=== PATIENT | female | born 1975 | race Caucasian/White ===

== ENCOUNTER 2017-01-09 13:52 | Inpatient (IN) | payer OTHER ==
[~2017-01-09] VITALS: Ht 167.6 cm; Wt 90.7 kg
--- NOTE | 2017-01-09 14:04 | ED PSYCHIATRIC COMPLAINT ---
History of Present Illness General Chief Complaint: Psychiatric Related Complaint Stated Complaint: PSYCH EVAL Source: patient Exam Limitations: no limitations Vital Signs & Intake/Output Vital Signs & Intake/Output Vital Signs Date Time Temp Pulse Resp B/P Pulse O2 O2 Flow FiO2 Ox Delivery Rate 01/09 1402 97.4 85 20 120/90 97 Room Air Allergies Coded Allergies: NSAIDS (Non-Steroidal Anti-Inflamma (Intermediate, HIVES, RASH, STOMACH PAIN 05/21) Reconcile Medications Fluoxetine HCl 20 MG CAPSULE 2 CAP PO DAILY MENTAL HEALTH (Reported) Hydroxyzine Pamoate 50 MG CAPSULE 1 CAP PO Q6H ANXIETY (Reported) Methylprednisolone 4 MG TAB.DS.PK STEROID TAPER (Reported) Olanzapine 10 MG TABLET 1 TAB PO QPM MENTAL HEALTH (Reported) Pregabalin (Lyrica) 150 MG CAPSULE 1 CAP PO TID SPINAL CORD/NERVE PAIN ( Reported) Quetiapine Fumarate 300 MG TABLET 1 TAB PO QHS MENTAL HEALTH (Reported) Quetiapine Fumarate 100 MG TABLET 1 TAB PO TID MENTAL HEALTH (Reported) Tizanidine HCl (Zanaflex) 2 MG CAPSULE 1 CAP PO AD MUSCLE SPASMS (Reported) Tramadol HCl 50 MG TABLET 1 TAB PO PRN PAIN - SPINAL STENOSIS (Reported) Triage Nurses Notes Reviewed? yes Onset: Gradual Duration: week(s): (FEW), worse persistent since (YESTERDAY) Timing: recent history Severity: severe Associated Symptoms: anxiety, impaired concentration, insomnia, suicidal ideation, AUDITORY HALLUCINATIONS : No Patient currently breastfeeds: No HPI: This is a 41-year-old female with history of anxiety, depression, alcohol abuse, past history of benzo and opiate abuse who presents to the ER for chief complaint of suicidal ideation and suicide attempt. She states yesterday over the course of day she took 12 pills of Lyrica instead of one 3 times a day as as directed. She states that she is hearing voices telling her to hurt herself. Patient suffers with chronic back pain issues and chronic alcoholism. Last detox was at [facility] a few months ago. She was living at a sober house for 2 months and doing well until needing to be admitted for vascular procedure at [place]. After the discharge from vascular service she wanted to go back to the sober house but they wouldn't accept her as she was coming from home setting. Patient states now that she is anxious, a motivated and drinking again. She actively wants to hurt herself because she does not feel worthy of her children. Past History Travel History Traveled to [place] past 21 day No Medical History Any Pertinent Medical History? see below for history Neurological: NONE EENT: NONE Cardiovascular: NONE Respiratory: NONE Gastrointestinal: NONE Hepatic: NONE Renal: NEUROGENIC BLADDER SELF CATHETERIZES Musculoskeletal: spinal stenosis, L4, L5,S1,S2 HERNIATED & SLIPPED DISK. Psychiatric: anxiety, depression, GENERALIZED ANXIETY D.O. Endocrine: NONE Blood Disorders: NONE Cancer(s): NONE NURSING PROGRAM MANAGER/Reproductive: NONE Surgical History Surgical History: non-contributory Psychosocial History What is your primary language Chadian Tobacco Use: Current Daily Use Daily Tobacco Use Amount/Type: => 5 Cigarettes daily ETOH Use: alcoholic Illicit Drug Use: benzodiazepines Family History Hx Contributory? No Review of Systems Review of Systems Constitutional: Denies: chills, fever. EENTM: Reports: no symptoms. Respiratory: Denies: cough, short of breath. Cardiovascular: Denies: chest pain. GI: Denies: abdominal pain. Genitourinary: Reports: no symptoms. Musculoskeletal: Reports: no symptoms. Skin: Reports: no symptoms. Neurological/Psychological: Reports: ataxia, confusion, dementia, emotional problems. Hematologic/Endocrine: Denies: bruising, bleeding, polyuria, polydipsia. Immunologic/Allergic: Reports: no symptoms. All Other Systems: Reviewed and Negative Physical Exam Physical Exam General Appearance: well developed/nourished, mild distress Head: atraumatic Eyes: Bilateral: PERRL, EOMI. Ears, Nose, Throat: normal pharynx, normal ENT inspection, hearing grossly normal Neck: normal inspection, supple Respiratory: normal breath sounds Cardiovascular: regular rate/rhythm Gastrointestinal: soft, non-tender Extremities: normal range of motion Neurological/Psychiatric: awake, alert, anxious Appearance/Memory/Insight: disheveled, impaired insight Behavoir/Eye Contact/Speech: avoids eye contact, compulsive, increased rate of speech, FLIGHT OF IDEAS Thoughts/Hallucinations: auditory hallucinations, flight of ideas Skin: intact, normal color, warm/dry SAD PERSONS SAD PERSONS Response Value Depression/Hopelessness? yes 2 Previous Attempts/Psych Care yes 1 Excessive Ethanol/Drug Use? yes 1 Rational Thinking Loss? yes 2 Single//? yes 1 Organized/Serious Attempt yes 2 Social Support? has no support 1 Total 10 SAD PERSONS Done? yes Progress Differential Diagnosis: ANXIETY, DEPRESSIVE, PSYCHOSIS, SCHIZOAFFECTIVE DISORDER , ALCOHOL DEPENDENCE Plan of Care: Orders Procedure Date/time Status Regular Diet 01/10 B Active Admit to inpatient psych 01/09 1649 Active Lab Add-on Test 01/09 1633 Active Pathway - chart 01/09 1632 Active Patient Data - inpatient psych 01/09 1631 Active Admit to inpatient psych 01/09 1631 Active THYROID STIMULATING HORMONE 01/09 1453 Active ETHANOL 01/09 1438 Active COMPREHENSIVE METABOLIC PANEL 01/09 1438 Active CBC WITHOUT DIFFERENTIAL 01/09 1438 Complete Continuous Observation Monitor 01/09 1405 Active URINE DRUGS OF ABUSE 01/09 1405 Complete URINE 01/09 1405 Complete ED CRISIS PSYCH CONSULT 01/09 1405 Active Vital Signs 01/09 UNK Active Straight Cath 01/09 UNK Active Nursing Misc 01/09 UNK Active CIWA 01/09 UNK Active Alternative Nursing Therapy 01/09 UNK Active Activity/Ambulation 01/09 UNK Active Current Medications Sig/Minnie Start time Last Medication Dose Stop Time Status Admin Lorazepam 0.5 MG ONCE 01/14 0000 UNVr (Ativan) 01/14 0001 Lorazepam 0.5 MG Q6H 01/13 0000 UNVr (Ativan) 01/13 1801 Lorazepam 0.5 MG ONCE ONE 01/12 1800 UNVr (Ativan) 01/12 1801 Lorazepam 1 MG Q6H 01/12 0000 UNVr (Ativan) 01/12 1201 Lorazepam 1.5 MG Q12H 01/11 0600 UNVr (Ativan) 01/11 1801 Lorazepam 1 MG Q12H 01/11 0000 UNVr (Ativan) 01/11 1201 Lorazepam 1.5 MG Q6 01/10 0600 UNVr (Ativan) 01/10 1801 Lorazepam 2 MG Q6 01/09 1800 UNVr (Ativan) 01/10 0001 Al Hydroxide/Mg 30 ML Q4-6 PRN PRN 01/09 1645 UNVr Hydroxide (Maalox Plus) Gabapentin 300 MG Q6P PRN 01/09 1645 UNVr (Neurontin) Lorazepam 2 MG Q2P PRN 01/09 1645 UNVr (Ativan) Lorazepam 1 MG Q2P PRN 01/09 1645 UNVr (Ativan) Magnesium Hydroxide 30 ML AT BEDTIME PRN 01/09 1645 UNVr (Milk Of Magnesia) Trazodone HCl 50 MG AT BEDTIME NEED.. 01/09 1645 UNVr (Desyrel) Laboratory Tests 01/09/17 1503: Urine Opiates Screen < 100.00, Methadone Screen 40, Barbiturate Screen < 60, Ur Phencyclidine Scrn < 6.00, Amphetamines Screen < 100, U Benzodiazepines Scrn < 85, Urine Cocaine Screen < 50, Urine Cannabis Screen < 5.00, Urine Test NEGATIVE 01/09/17 1453: Anion Gap 12, Estimated GFR > 60, BUN/Creatinine Ratio 15.0, Glucose 89, Calcium 9.6, Total Bilirubin 0.6, AST 18, ALT 23, Alkaline Phosphatase 97, Total Protein 7.6, Albumin 4.6, Globulin 3.0, Albumin/Globulin Ratio 1.5, TSH Pending, CBC w Diff NO MAN DIFF REQ, RBC 4.61, MCV 80.8 L, MCH 27.4, RDW 17.0 H, MPV 6.9 L, Gran % 61.7, Lymphocytes % 24.6, Monocytes % 10.8 H, Eosinophils % 2.6, Basophils % 0.3, Absolute Granulocytes 3.5, Absolute Lymphocytes 1.4, Absolute Monocytes 0.6, Absolute Eosinophils 0.1, Absolute Basophils 0, PUBS MCHC 33.8, Serum Alcohol < 10.0 SITTER ORDER, CRISIS CONSULT, LABS, UTOX. 4:50 PM PATIENT ADMITTED TO [facility] FOR UNSPECIFIED DEPRESSIVE DISORDER. (CORWIN YAO,JAVIER) Departure Departure Time of Disposition: 1648 Disposition: STILL A PATIENT Condition: Stable Clinical Impression Primary Impression: Depressive disorder Secondary Impressions: Alcohol dependence Departure Forms: Customer Survey General Discharge Information Psych Admission Note Psychiatric Admission: I have seen and evaluated ERNESTO ZAMORA. I have also reviewed all the pertinent lab results and diagnostic results. ERNESTO ZAMORA will be admitted to our inpatient Psychiatric unit for treatment and care.
[2017-01-09 15:11] LABS: ABSOLUTE BASOPHIL COUNT 0 /CUMM (0.0-0.2); ABSOLUTE EOSINOPHIL COUNT 0.1 /CUMM (0.0-0.7); ABSOLUTE GRANULOCYTE CT 3.5 /CUMM (1.4-6.5); ABSOLUTE LYMPH COUNT 1.4 /CUMM (1.2-3.4); ABSOLUTE MONOCYTE COUNT 0.6 /CUMM (0.10-0.60); BASOPHIL % 0.3 % (0.0-2.0); EOSINOPHIL % 2.6 % (0-5); HEMATOCRIT 37.2 % (37-47); MEAN CORPUSCULAR HGB 27.4 PG (27.0-31.0); MEAN CORPUSCULAR HGB CONC 33.8 G/DL (33.0-37.0); MEAN CORPUSCULAR VOLUME 80.8 FL (81.0-99.0); MEAN PLATELET VOLUME 6.9 FL (7.4-10.4); PLATELET COUNT 384 /CUMM (130-400); RED BLOOD CELL CT 4.61 /CUMM (4.20-5.40); WHITE BLOOD CELL COUNT 5.6 /CUMM (4.8-10.8)
[2017-01-09 15:37] LABS: GRANULOCYTE % 61.7 % (42.2-75.2)
[2017-01-09] MEDS ORDERED: METHYLPREDNISOLO4 M2 PO (16:05)
[2017-01-09] MEDS ORDERED: LYRICA150 M1 PO (16:06)
[2017-01-09] MEDS ORDERED: TRAMADOL HCL50 M1 PO (16:07)
[2017-01-09] MEDS ORDERED: QUETIAPINE FUM300 M1 PO (16:08)
[2017-01-09] MEDS ORDERED: ZANAFLEX2 M2 PO (16:08)
[2017-01-09] MEDS ORDERED: FLUOXETINE HCL20 M2 PO (16:09)
[2017-01-09] MEDS ORDERED: QUETIAPINE FUM100 M1 PO (16:09)
[2017-01-09] MEDS ORDERED: HYDROXYZINE PAM50 M1 PO (16:10)
[2017-01-09] MEDS ORDERED: OLANZAPINE10 M1 PO (16:10)
[2017-01-09 17:12] VITALS: BP 140/79
--- NOTE | 2017-01-09 17:18 | ED PSYCH CRISIS CONSULTATION ---
See Addendum Crisis Consult Basic Assessment Date of Consult: 01/09/17 Responsible Person/Accompanied By: social media intern Insurance Authorization: Insurance #1: Insurance name: DIAMOND GONZALEZ Phone number: Policy number: Group number: Authorization number: ED Provider: Patient's ED Provider: JAVIER OLIVIA MD Primary Care Physician: Patient's PCP: PATIENT HAS NO PRIMARY CARE DR PCP's Phone Number: Chief Complaint: Psychiatric Related Complaint Patient's Quote: " I plan to over dose with pills. Present Illness: Pt is 41 yo female with hx of depression and anxiety. Pt was BIB social media intern for taking 12 Lyrica pills last night. Pt presents as confused and disoriented during intake interview ie thoughts were disorganized and tangential. Pt states she is currently suicidal and wants to take pills to kill herself. She says she has current AH telling her to take pills and are putting her down. Pt was unclear about tx history as she is currently anxious. Pt said she has a history of taking seroquel and Lyrica. Pt said she had a hx of going to [facility], [facility], [place] and [facility]. Pt said 2 days ago she had been drink 1/2 pint liter of vodka daily. She would like to be admitted for inpatient treatment. Pt's UTOX was negative for substances. Per collateral with Marvin [phone]: Marvin reported he is very concerned about his sister. She lives with her grandfather or father and has no structure in her day. Brother reports his sister has hx of mental problems. He said he witnesses her coming back from stays and take one months worth of medications in 3 days. Marvin stated he thinks she has struggled with her mother leaving 5 years ago and after her divorce. He said she has 2 kids who live with their father. He feels she needs inpatient treatment at this time. Marvin noted he thinks she needs a structured living situation as she has no motivation and it "feels like talking to a 12 yo." Collaterl with Stacie ( mom ) [phone]: Stacie stated she is worried about her daughter and feels she needs the appropriate help. She reported the pt has had accidental over dose incidents in the past. Patient's Address: [address] [place] [address] Other Phone Number: Who Do You Live With? Brother Family/Informants Interviewed: Marvin Vásquez- brother Stacie- mom Allergies - Coded Allergies: NSAIDS (Non-Steroidal Anti-Inflamma (Intermediate, HIVES, RASH, STOMACH PAIN 05/21) Current Medications - Scheduled Medications Fluoxetine HCl 20 MG CAPSULE 2 CAP PO DAILY MENTAL HEALTH #28 (Reported) Entered as Reported by LUIS MIGUEL HASSAN on 01/09/17 1609 Hydroxyzine Pamoate 50 MG CAPSULE 1 CAP PO Q6H ANXIETY #120 (Reported) Entered as Reported by LUIS MIGUEL HASSAN on 01/09/17 1610 Olanzapine 10 MG TABLET 1 TAB PO QPM MENTAL HEALTH #30 (Reported) Entered as Reported by LUIS MIGUEL HASSAN on 01/09/17 1610 Pregabalin (Lyrica) 150 MG CAPSULE 1 CAP PO TID SPINAL CORD/NERVE PAIN #42 ( Reported) Entered as Reported by LUIS MIGUEL HASSAN on 01/09/17 1606 Quetiapine Fumarate 300 MG TABLET 1 TAB PO QHS MENTAL HEALTH #7 (Reported) Entered as Reported by LUIS MIGUEL HASSAN on 01/09/17 1608 Quetiapine Fumarate 100 MG TABLET 1 TAB PO TID MENTAL HEALTH #70 (Reported) Entered as Reported by LUIS MIGUEL HASSAN on 01/09/17 1609 Tizanidine HCl (Zanaflex) 2 MG CAPSULE 1 CAP PO AD MUSCLE SPASMS #20 ( Reported) Entered as Reported by LUIS MIGUEL HASSAN on 01/09/17 1608 Scheduled PRN Medications Tramadol HCl 50 MG TABLET 1 TAB PO PRN PAIN - SPINAL STENOSIS #56 (Reported) Entered as Reported by LUIS MIGUEL HASSAN on 01/09/17 1607 Miscellaneous Medications Methylprednisolone 4 MG TAB.DS.PK STEROID TAPER (Reported) Entered as Reported by LUIS MIGUEL HASSAN on 01/09/17 1605 Laboratory Results: Laboratory Tests 01/09/17 1503: Urine Opiates Screen < 100.00, Methadone Screen 40, Barbiturate Screen < 60, Ur Phencyclidine Scrn < 6.00, Amphetamines Screen < 100, U Benzodiazepines Scrn < 85, Urine Cocaine Screen < 50, Urine Cannabis Screen < 5.00, Urine Test NEGATIVE 01/09/17 1453: Anion Gap 12, Estimated GFR > 60, BUN/Creatinine Ratio 15.0, Glucose 89, Calcium 9.6, Total Bilirubin 0.6, AST 18, ALT 23, Alkaline Phosphatase 97, Total Protein 7.6, Albumin 4.6, Globulin 3.0, Albumin/Globulin Ratio 1.5, TSH Pending, CBC w Diff NO MAN DIFF REQ, RBC 4.61, MCV 80.8 L, MCH 27.4, RDW 17.0 H, MPV 6.9 L, Gran % 61.7, Lymphocytes % 24.6, Monocytes % 10.8 H, Eosinophils % 2.6, Basophils % 0.3, Absolute Granulocytes 3.5, Absolute Lymphocytes 1.4, Absolute Monocytes 0.6, Absolute Eosinophils 0.1, Absolute Basophils 0, PUBS MCHC 33.8, Serum Alcohol < 10.0 Past History Past Medical History Neurological: NONE EENT: NONE Cardiovascular: NONE Respiratory: NONE Gastrointestinal: NONE Hepatic: NONE Renal: NEUROGENIC BLADDER SELF CATHETERIZES Musculoskeletal: spinal stenosis, L4, L5,S1,S2 HERNIATED & SLIPPED DISK. Psychiatric: anxiety, depression, GENERALIZED ANXIETY D.O. Endocrine: NONE Blood Disorders: NONE Cancer(s): NONE CASEWORKER INTAKE/Reproductive: NONE Psychosocial History Strengths/Capabilities: Pt is motivated for treatment and would like to learn new coping skills. Physical Limitations (Interventions): no Psychiatric Treatment History Psych Treatment Psychiatric Treatment Yes Inpatient Treatment Yes Outpatient Treatment Yes Location of Treatment [facility], and [facility] Reason for Treatment alcohol abuse and depression and anxiety Dates of Treatment Pt reported the past 5 yrs Response to Treatment fair Diagnosis by History: Alcohol, depression and anxiety Substance Use/Abuse History Drug Use/Abuse Substances Used/Abused Yes Substance Used/Abused Alcohol First Use 20's Last Used 2 days ago How much used/taken 1/2 pint vodka How often daily For how long past 3 weeks Route of use oral Substance Abuse Treatment Substance Abuse Treatment Past Substance Abuse TX Yes Inpatient Treatment Yes Outpatient Treatment Yes Location of Treatment [facility] Reason for Treatment Alcohol Dates of Treatment unlcear Response to Treatment fair Comments: Pt reports hx of alcohol abuse and benzo addiction Current Mental Status Mental Status Orientation: Confused Affect: Anxious, Depressed, Hopeless, Manic Speech: Perseveration, WNL Neuro-vegetative: Appetite Decreased, Concentration Poor, Energy Decreased, Loss of Interest, Sleep Disturbance Appearance Appearance- Dress/Hygiene: Pt was dressed in hospital gown, disheveled hair. Behaviors Thought Process: Disorganized, Tangential Thought Content: Auditory Hallucinations Memory: Impaired Insight: Poor SI/HI Risk Assessment Past Suicidal Ideation/Attempts Yes Current Suicidal Ideation/Att Yes Past Homicidal Ideation/Att: No Current Homicidal Ideation/Attempts No Degree of Intent: made attempt Risk Factors: chronic/serious med cond., history of suicide atmpts, substance abuse, limited support Lethality Ratin PTSD Checklist PTSD Done? pt unable to participate ED Management Sitter: Yes Restraints: No DSM5/PS Stressors/Medical Prob Diagnosis' (DSM 5, Stressors, Medical): F32.9 unspecified depression; F41.9 unspecified anxiety Current GAF: 25 Comments: medical: pt reports spinal stenosis Departure Disposition Referrals PATIENT HAS NO PRIMARY CARE DR (PCP/Family)
--- NOTE | 2017-01-09 17:38 | IP CRISIS DIAG ASSESS PSYCH ---
Diagnostic Assessment Basic Assessment Insurance Authorization: Insurance #1: Insurance name: DIAMOND GONZALEZ Phone number: Policy number: [id number] Group number: Authorization number: [id number] Primary Care Physician: Patient's PCP: PATIENT HAS NO PRIMARY CARE DR PCP's Phone Number: Patient's Quote: " I plan to over dose with pills. Present Illness: Pt is 41 yo female with hx of depression and anxiety. Pt was BIB drug abuse social worker for taking 12 Lyrica pills last night. Pt presents as confused and disoriented during intake interview ie thoughts were disorganized and tangential. Pt states she is currently suicidal and wants to take pills to kill herself. She says she has current AH telling her to take pills and are putting her down. Pt was unclear about tx history as she is currently anxious. Pt said she has a history of taking seroquel and Lyrica. Pt said she had a hx of going to [facility], [facility], [place] and [facility]. Pt said 2 days ago she had been drink 1/2 pint liter of vodka daily. She would like to be admitted for inpatient treatment. Pt's UTOX was negative for substances. Per collateral with Marvin [phone]: Marvin reported he is very concerned about his sister. She lives with her grandfather or father and has no structure in her day. Brother reports his sister has hx of mental problems. He said he witnesses her coming back from IP stays and take one months worth of medications in 3 days. Marvin stated he thinks she has struggled with her mother leaving 5 years ago and after her divorce. He said she has 2 kids who live with their father. He feels she needs inpatient treatment at this time. Marvin noted he thinks she needs a structured living situation as she has no motivation and it "feels like talking to a 13 yo." Collaterl with Stacie ( mom ) [phone]: Stacie stated she is worried about her daughter and feels she needs the appropriate help. She reported the pt has had accidental over dose incidents in the past. Patient's Address: [address] [place] [address] Other Phone Number: Who Do You Live With? Brother Feel Safe Where You Live? Yes Feel Safe in Your Relationship Yes Marital Status: Do You Have Children? Yes Ages? 12 and 14 Primary Language? Portuguese Language(s) Spoken At Home: Portuguese Family/Informants Interviewed: Marvin Vásquez- brother Stacie- mom Allergies - Coded Allergies: NSAIDS (Non-Steroidal Anti-Inflamma (Intermediate, HIVES, RASH, STOMACH PAIN 05/21) Current Medications - Scheduled Medications Fluoxetine HCl 20 MG CAPSULE 2 CAP PO DAILY MENTAL HEALTH #28 (Reported) Entered as Reported by LUIS MIGUEL HASSAN on 01/09/17 1609 Hydroxyzine Pamoate 50 MG CAPSULE 1 CAP PO Q6H ANXIETY #120 (Reported) Entered as Reported by LUIS MIGUEL HASSAN on 01/09/17 1610 Olanzapine 10 MG TABLET 1 TAB PO QPM MENTAL HEALTH #30 (Reported) Entered as Reported by LUIS MIGUEL HASSAN on 01/09/17 1610 Pregabalin (Lyrica) 150 MG CAPSULE 1 CAP PO TID SPINAL CORD/NERVE PAIN #42 ( Reported) Entered as Reported by LUIS MIGUEL HASSAN on 01/09/17 1606 Quetiapine Fumarate 300 MG TABLET 1 TAB PO QHS MENTAL HEALTH #7 (Reported) Entered as Reported by LUIS MIGUEL HASSAN on 01/09/17 1608 Quetiapine Fumarate 100 MG TABLET 1 TAB PO TID MENTAL HEALTH #70 (Reported) Entered as Reported by LUIS MIGUEL HASSAN on 01/09/17 1609 Tizanidine HCl (Zanaflex) 2 MG CAPSULE 1 CAP PO AD MUSCLE SPASMS #20 ( Reported) Entered as Reported by LUIS MIGUEL HASSAN on 01/09/17 1608 Scheduled PRN Medications Tramadol HCl 50 MG TABLET 1 TAB PO PRN PAIN - SPINAL STENOSIS #56 (Reported) Entered as Reported by LUIS MIGUEL HASSAN on 01/09/17 1607 Miscellaneous Medications Methylprednisolone 4 MG TAB.DS.PK STEROID TAPER (Reported) Entered as Reported by LUIS MIGUEL HASSAN on 01/09/17 1605 Past History Past Medical History Medical History: pt reports spinal stenosis Past Surgical History Surgical History none Abuse/Trauma History Trauma History/Current Trauma: Pt said a box fell on her at [employer] Victim or Perpretator? victim (NA) History of Trauma/Abuse Treatment? No Abuse/Trauma Treatment: Pt did not report sexual trauma Legal History Current Legal Status: none Psychosocial History Strengths/Capabilities: Pt is motivated for treatment and would like to learn new coping skills. Physical Limitations (Interventions): no Psychiatric Treatment History Psych Treatment Psychiatric Treatment Yes Inpatient Treatment Yes Outpatient Treatment Yes Location of Treatment [facility], [facility], and [facility] Reason for Treatment alcohol abuse and depression and anxiety Dates of Treatment Pt reported the past 5 yrs Response to Treatment fair Diagnosis by History: Alcohol, depression and anxiety Risk Factors: chronic/serious med cond., history of suicide atmpts, substance abuse, limited support Substance Use/Abuse History Drug Use/Abuse minimum 12mo Hx Substances Used/Abused Yes Substance Used/Abused Alcohol First Use 20's Last Used 2 days ago How much used/taken 1/2 pint vodka How often daily For how long past 3 weeks Route of use oral Substance Abuse Treatment Substance Abuse Treatment Past Substance Abuse TX Yes Inpatient Treatment Yes Outpatient Treatment Yes Location of Treatment [facility], [place], and [facility] Reason for Treatment Alcohol Dates of Treatment unlcear Response to Treatment fair Sexual History Sexually Active No # of partners 0 Sexual Orientation Heterosexual Use of Protection No Sexual Concerns: No Education History Highest Level of Education: not sure Preferred Learning Style: visual (visual ) Current Mental Status Mental Status Orientation: Confused Affect: Anxious, Depressed, Hopeless, Manic Speech: Perseveration, WNL Neuro-vegetative: Appetite Decreased, Concentration Poor, Energy Decreased, Loss of Interest, Sleep Disturbance Appearance Appearance- Dress/Hygiene: Pt was dressed in hospital gown, disheveled hair. Behaviors Thought Process: Disorganized, Tangential Thought Content: Auditory Hallucinations Memory: Impaired Insight: Poor SI/HI Risk Assessment - Minimum 6mo History- Past Suicidal Ideation/Attempts Yes Current Suicidal Ideation/Att Yes Past Homicidal Ideation/Att: No Current Homicidal Ideation/Attempts No Degree of Intent: made attempt Risk Factors: chronic/serious med cond., history of suicide atmpts, substance abuse, limited support Lethality Ratin Needs/Init TX Plan/Goals: Mood stabilization and safety, individual and group therapy, family meeting and medication evaluation. AUDIT-C Questionnaire: AUDIT-C Questionnaire: Response Value ETOH use in the past year 4 or more per week 4 # drinks typical/day 7-9 3 6 or > drinks per occasion Daily/Almost Daily 4 Total 11 DSM5/PS Stressors/Medical Prob Diagnosis' (DSM 5, Stressors, Medical): F32.9 unspecified depression; F41.9 unspecified anxiety Current GAF: 25 Comments: medical: pt reports spinal stenosis
[2017-01-09 18:34] VITALS: BP 145/70
[2017-01-09 18:57] VITALS: BP 145/70
[2017-01-09 19:42] VITALS: BP 115/70
[2017-01-10] VITALS (10 sets, daily range): BP systolic 103–135; BP diastolic 63–88
--- NOTE | 2017-01-10 11:07 | SOCIAL WORKER PROG NOTE PSYCH ---
Social Work Progress Note Progress Note SW met patient briefly for the first time today. Patient found in bed, reported pain in legs and unable to walk- requested to meet in room. Patient will be meeting with Beena Esparza LCSW today for social hx but I wanted to arrange family meeting today with patient. Patient reported that her brother, Marvin, is her closest support who lives in [place], [place]. She has signed a TIFFANY for me to speak to patient. I called and left voicemail with Marvin and requested call back to arrange for a family meeting tentatively tomorrow or Sunday. Waiting for call back at this time.
--- NOTE | 2017-01-10 11:07 | SOCIAL WORKER TX PLAN PSYCH ---
Treatment Plan - Please Document: - Evidence that there is ongoing collaboration between - the patient and the interdisciplinary team, - including the patient's active participation and - responsibility for engaging in the treatment regimen, - and that the treatment plan is individualized and - relevant to the patient's conditions. - Treatment plan should reflect documentation indicating - that all active therapeutic efforts are included. Strengths/Capabilities: Pt is motivated for treatment and would like to learn new coping skills. Physical Limitations (Interventions): no Patient Identified Trmt Goals: "I want to stop using substances " Discharge Plan: Rehab Problem/Goals #1 Problem #1: suicidal ideation Goal (Short Term): Today I will attend 2 groups Today I will identify 2 stressors Today I will identify 2 positive supports Today I will work on recognizing 3 emotions I am feeling Goal (Mixer Tender): Be free of suicidal thoughts/attempts Develop 3 coping skills to deal with depression Identify 3 positive support systems to call in crisis Develop a crisis plan with 3 fuentes people Identify 2 positive traits per week about myself Identify 2 things I have to look forward to Identify 2 positive people in my life and 1 thing I appreciate about them Interventions: Learn ways to manage depressive symptoms accordingly and identify positive supports to manage life stressors and mood fluctuations. Modalities: Encourage groups, education on depression, provide CBT treatment, family meeting. Problem/Goals #2 Problem #2: alcohol dependence/abuse Goal (Short Term): 1) Refrain from alcohol use 2) Identify 3 triggers for use 3) Identify 3 sober supports 4) Identify 3 coping skills Goal (Fpc): I will have family meeting on unit during my hospitalization I will attend all AA groups on unit I will arrange aftercare with [facility] I will Identify 3 coping skills for cravings to use I will set up aftercare for dual diagnosis program to address both mental health and substance abuse concerns Interventions: Learn ways to manage cravings to use substances accordingly and identify coping skills to prevent relapse from occurring due to anxious/depressed feelings. Modalities: Encourage groups, education on addiction, provide CBT treatment, family meeting. DSM5/PS Stressors/Medical Prob Diagnosis' (DSM 5, Stressors, Medical): F32.9 unspecified depression; F41.9 unspecified anxiety Current GAF: 25 Treatment Team - Responsibilities of members of the treatment team include: - Medication Management- MD or ELECTRIC STOP INSTALLER - Medication Administration and Monitoring- Nurse - Group Therapy- Occupational Therapist - 1:1 Therapy,Disch Planning,family involvement-Child And Family Therapist
--- NOTE | 2017-01-10 11:12 | CPS MD/APRN INITIAL ASSE PSYCH ---
Psychiatric Admission Set O Type Operator's Note Reviewed: Yes Patient Seen and Examined: Yes Identifying Information: Patient is a 41-year old female. Chief Complaint: "I was hearing voices and couldn't sleep. I ran out of my medications." Reaction to Hospitalization: "I'm extremely anxious." History of Present Illness Onset of Illness: Patient is a 41 year old female with a history of depression and anxiety who was brought in by social media coordinator to ED s/p ingestion of approximately #12 pills of Lyrica. On intial Crisis presentation, she presented confused, disorganized and tangential, and endorsed AH telling her to take pills. Patient reported running out of psychotropic medications (Prozac 40mg daily, Seroquel 300mg at HS, Seroquel 100mg TID) approx. 2 weeks to 1 month ago. Reported a history of depression, anxiety, and auditory hallucinations. Also reported worsened insomnia since running out of prescribed Seroquel. She was unable to report her last psychiatric provider/prescriber. Circumstances Leading to Admission: Medication nonadherence Likely treatment nonadherence Alcohol use. Problem(s) Justifying Need for Admission: Suicidal ideation Auditory hallucinations Alcohol detox Past Psychiatric History Past Diagnosis(es)- if any: Unspecified anxiety Unspecified depression Past Precipitating Factors- if any: Chronic pain Substance abuse Treatment/medication nonadherence - Include inpatient and outpatient treatment Treatment History: Pt reported multiple prior inpatient psych hospitalizations during 2016 - most recent in 09/2016 s/p tylenol overdose. Other admissions were for overdose on unknown pills, and depression/insomnia per her report. Prior alcohol detoxes at [facility] and [facility] per her report. Elizabeth Rosen LCSW, [facility] (current SW per pt). Pt reported SW makes home visits. History of Suicide Attempts or Gestures Pt reported 2 prior OD attempts, last in September 2016 on tylenol and 1 prior in 2015 on unknown pills (per pt report). Current admission related to OD on Lyrica. Substance Abuse History: Alcohol: Reported FARHAT on 01/07/17 of 1 pint of liquor. Reports drinking 1 pint liquor every 2 days. Reported history of withdrawal seizures and medical detoxes from alcohol. Last Sz in 2012, per pt. Denied history of DTs. Benzodiazepines: Reported a history of ativan abuse. FARHAT approx. "a couple years ago." Patient denied use of illicits. Reported use of 0.5PPD of cigarettes. Allergies: Coded Allergies: NSAIDS (Non-Steroidal Anti-Inflamma (Intermediate, HIVES, RASH, STOMACH PAIN 05/21) Home Med List: Verified by Kiara in [place], [place]: Seroquel 300mg po QHS Seroquel 100mg po TID Prozac 40mg po daily Zanaflex 2mg every 8 hours as needed Lyrica 150mg TID Tramadol 50mg, 2 tabs BID (last filled in 10/2016) - Include any medical condition(s) that may - impact the patient's recovery/remission Past Medical History: Spinal stenosis L4-L5 and S1-S2 slipped discs Past History Medical History Neurological: NONE EENT: NONE Cardiovascular: NONE Respiratory: NONE Gastrointestinal: NONE Hepatic: NONE Renal: NEUROGENIC BLADDER SELF CATHETERIZES Musculoskeletal: spinal stenosis, L4, L5,S1,S2 HERNIATED & SLIPPED DISK. Psychiatric: alcohol dependence, anxiety, depression, insomnia Endocrine: NONE Blood Disorders: NONE Cancer(s): NONE CLINICAL REHABILITATION COORDINATOR/Reproductive: NONE Isolation History: Standard Surgical History Surgical History: none Psychiatric Family/Social Hx Family History Psychiatric Illness: Pt denied. Substance Use: Alcoholism in both paternal and maternal sides of family. Suicides: Pt denied. Social History Living Situation: Pt reported living with her grandmother and father who live in the [facility] in separate units. Significant Relationships (family/friends): Grandmother and father Education: 12th grade Vocation/Occupation: Currently unemployed. Last worked at [employer] in 2011. Currently reported having no source of income and in process of filing for disability. Legal: Pt denied. Healthly Behaviors Screening Tobacco Screening Tobacco Use from ED Docu: Current Daily Use Daily Tobacco Use Amount/Type: => 5 Cigarettes daily - If tobacco counseling indicated - the following topics are required. - #1 Recognizing dangerous situations. - #2 Coping Skills. - #3 Basic information about quitting. Status of Tobacco Cessation Counseling: #1, #2 AND #3 Completed Cessation Med Status: Nicotine Patch Ordered Alcohol Screening - ETOH screen POS if BAL >=80 or Audit-C>= M4/F3 Audit-C Score from Diag Assess: 11 Blood Alcohol Level: Laboratory Tests 01/09 1453 Toxicology Serum Alcohol (<10 MG/DL) < 10.0 Alcohol Use Screening Results: Pos per Audit C &/or BAL - If ETOH counseling indicated - the following topics are required. - #1 Express concern about the patient's - drinking at unhealthy levels, include informing - of national norms for moderate drinking: - men <= 14 drinks/week, max 4 drinks/occasion - women <= 7 drinks/week, max 3 drinks/occasion - #2 Providing feedback, including linking alcohol to - negative physical effects (liver injury, hypertension) - negative emotional effects (relationship problems and - depression) - negative occupational consequences (reduced work - performance) - #3 Advising the patient to abstain from alcohol or - to drink below national norms for moderate drinking - (as listed above). Status of ETOH Use Counseling: #1, #2 AND #3 Completed. Metabolic Screening - Screen if on a Neuroleptic Medication - Metabolic screening should include: - Blood Pressure, BMI, Glucose or Hgb A1c, & a - Lipid profile from within the past 365 days. Metabolic Screening () Not Applicable, patient not on a neuroleptic. OR ([X]) Patient on a neuroleptic(s) . Enter below results for Glucose or Hemoglobin A1C, and lipid panel if obtained during the last 365 days. BMI: 32.200 Blood Pressure: 135/80 Laboratory Results (If applicable): Lab Cholesterol 286 MG/DL H 01/09/17 1453 Cholesterol/HDL Ratio 5 % H 01/09/17 1453 Glucose 89 mg/dL 01/09/17 1453 HDL Cholesterol 54 mg/dL 01/09/17 1453 LDL Cholesterol, Calc 213 mg/dL H 01/09/17 1453 Triglycerides 99 mg/dL 01/09/17 1453 Exam and Plan Mental Status Examination Ambulation Status: Slow and steady with walker. Patient reported she ambulates at home with crutches. Appearance: 41 y/o CF appeared stated age. Dressed casually and comfortably. Attitude towards examiner: Cooperative, easily engaged in conversation. Psychomotor activity: WNL Behavior: WNL Quality of speech: Normal in rate, tone and volume. Affect: Constricted Mood: "anxious" Suicidal Ideation: Pt denied. Homicidal Ideation: Pt denied. Hallucinations: Patient reported AH of "voices putting me down." She denied AH were command in nature. She denied VH and TH. Paranoid/Delusional Material: None evident Difficulties with thought organization: None evident Insight: Limited Judgment: Limited Orientation: A&Ox3 Cognition: Grossly intact Memory Function: Gtossly intact Estimate of intellectual functioning: Average Assets/Strengths Patient Identified Assets/Strengths: Supportive family, motivated for treatment. Impression/Plan Impression and Plan: Patient is a 41 year old female with a history of prior inpatient hospitalizations and 3 prior suicide attempts (including the one that led to current hospitalization); history of anxiety, depression, auditory hallucinations, and alcohol use disorder. Patient appeared to be a very poor historian, unable to identify most recent psychiatric provider who prescribed medications, or last place of outpatient psychiatric treatment. Seems unclear if the patient ever followed up with after care treatment s/p discharge from [facility] in September 2016; however somehow obtained medication refills until recently running out approx 2 weeks to 1 month ago. Recurrence of AH, anxiety and depression, and insomnia is likely related to medication/treatment nonadherence and running out of prescribed medications. Patient remains with AH and intense anxiety. Patient only willing to be restarted on Seroquel for hallucinations/insomnia and anxiety. Patient will likely benefit from restarting home medications and inpatient psychiatric monitoring for safety, psychosis and mood symptoms. Will not restart Prozac 40mg for now given continued AH and concern for worsening of AH from SSRI. Reviewed the risk/benefit/SE profiles of Seroquel with patient, who verbalized understanding and was agreeable to restart. - Include all active medical diagnosis that require tx DSM 5 Diagnosis(es): MDD, recurrent, severe with psychotic features. Unspecified anxiety disorder R/O Schizoaffective disorder Alcohol use disorder, severe - Initial Tx Plan for Active Psych & Medical Conditions Treatment Plan: 1. Monitor patient on unit for safety, suicidal ideation, mood, auditory hallucinations and alcohol withdrawal. 2. Monitor patient on CIWA protocol Q2H ATC. Utilize prn ativan per CIWA protocol. Continue Ativan taper for alcohol withdrawal. 3. Continue vitamin support with Thiamine, Folic Acid and Multivitamin. 4. EKG ordered. 5. Restart Seroquel 300mg QHS for insomnia/auditory hallucinations. Start Seroquel 50mg BID for auditory hallucinations with plan to increase as tolerated. 6. Will restart Tramadol 50mg Q6H as needed for pain (per [place] PUMP ASSEMBLER website) and Flexeril 5mg Q8H as needed for muscle spasm per recommendation of hard tile setter Dr. Sim. Will hold off on restarting Lyrica given recent overdose and as recommended by hard tile setter Dr. Sim. Will substitute with Gabapentin 300mg Q6 hours and will consider increase if patient tolerates. Patient informed of this. 7. Request records from [facility] for inpatient records. 8. Obtain collateral information from family. 9. When symptoms are psychiatrically stable, will refer to [facility] level of care or inpatient substance abuse rehab. - Factors that would help patient function - in a less restrictive setting. Factors: Alleviation of SI Absence of AH Mood stabilization Alcohol detox Sobriety
--- NOTE | 2017-01-10 15:02 | SOCIAL WORKER SOCIAL HX PSYCH ---
Social History Basic Assessment Insurance Authorization: Insurance #1: Insurance name: DIAMOND [employer] Phone number: Policy number: [id number] Group number: Authorization number: Curr Source of Income/Entitlements: Family Primary Care Physician: Patient's PCP: PATIENT HAS NO PRIMARY CARE DR PCP's Phone Number: Present Problem: Met with Janine this morning, she stated she is having leg pain and cannot walk with a walker, wanted her pain medication nd a wheelchair. She stated she is hearing voices but cannot tell me what they are saying. She denied SI/HI, no VH. Pt. stated "I'm very impulsive, compulsive..I got angry at the voices, the voices were telling me I was a bad person and a bad mother." - in reference to prior to coming to the ED. She reports feeling shaky and chills and sweats - stated 'I don't think the medication is working...I want my Lyrica." She had just seen the prescriber and wasn't sure what was talked about. She seemed to be medication seeking. Janine stated her 2 children 12yo and 14yo live withtheir Father (down the road from where Pt. lives), and she sees them a "few times per month", she wants to see them more often. She stated they are doing well. She is x4yrs, stated she just completed detox at [facility], and could not remember the follow-up discharge plan. She stated she has been drinking ETOH up to 1/2 liter Vodka daily on and off for the past couple of months. She stated she was sober for years, but started drinking 4yrs ago (coincides with divorce). She stated she has gone to NA in past but not for past couple of months. Denied leagal issues,. She stated "there are pills at my Grandmother's house, and alchohol at my Brother's...I don't feel safe going back there to live." Primary Language? Kyrgyz Language(s) Spoken At Home: Kyrgyz Living Situation Other Living Arrangement: relative's/guardian's jie Feel Safe Where You Are Living Yes Feel Safe in Relationships? Yes Comments: Pt. stted she is close with her Father and Grandmother. Stated she lives between her Father and Mother's house Allergies - Coded Allergies: NSAIDS (Non-Steroidal Anti-Inflamma (Intermediate, HIVES, RASH, STOMACH PAIN 05/21) Current Medications - Scheduled Medications Fluoxetine HCl 20 MG CAPSULE 2 CAP PO DAILY MENTAL HEALTH #28 (Reported) Entered as Reported by LUIS MIGUEL HASSAN on 01/09/17 1609 Hydroxyzine Pamoate 50 MG CAPSULE 1 CAP PO Q6H ANXIETY #120 (Reported) Entered as Reported by LUIS MIGUEL HASSAN on 01/09/17 1610 Olanzapine 10 MG TABLET 1 TAB PO QPM MENTAL HEALTH #30 (Reported) Entered as Reported by LUIS MIGUEL HASSAN on 01/09/17 1610 Pregabalin (Lyrica) 150 MG CAPSULE 1 CAP PO TID SPINAL CORD/NERVE PAIN #42 ( Reported) Entered as Reported by LUIS MIGUEL HASSAN on 01/09/17 1606 Quetiapine Fumarate 300 MG TABLET 1 TAB PO QHS MENTAL HEALTH #7 (Reported) Entered as Reported by LUIS MIGUEL HASSAN on 01/09/17 1608 Quetiapine Fumarate 100 MG TABLET 1 TAB PO TID MENTAL HEALTH #70 (Reported) Entered as Reported by LUIS MIGUEL HASSAN on 01/09/17 1609 Tizanidine HCl (Zanaflex) 2 MG CAPSULE 1 CAP PO AD MUSCLE SPASMS #20 ( Reported) Entered as Reported by LUIS MIGUEL HASSAN on 01/09/17 1608 Scheduled PRN Medications Tramadol HCl 50 MG TABLET 1 TAB PO PRN PAIN - SPINAL STENOSIS #56 (Reported) Entered as Reported by LUIS MIGUEL HASSAN on 01/09/17 1607 Miscellaneous Medications Methylprednisolone 4 MG TAB.DS.PK STEROID TAPER (Reported) Entered as Reported by LUIS MIGUEL HASSAN on 01/09/17 1605 Past History Past Medical History Neurological: NONE EENT: NONE Cardiovascular: NONE Respiratory: NONE Gastrointestinal: NONE Hepatic: NONE Renal: NEUROGENIC BLADDER SELF CATHETERIZES Musculoskeletal: spinal stenosis, L4, L5,S1,S2 HERNIATED & SLIPPED DISK. Psychiatric: alcohol dependence, anxiety, depression, insomnia Endocrine: NONE Blood Disorders: NONE Cancer(s): NONE ORIENTAL RUG REPAIRER/Reproductive: NONE Past Surgical History Surgical History: non-contributory /Family History Place/Country of Origin: [place], [place] Childhood Family Constellation: Both parents, until I was a teenager, then my Father Primary Childhood Caretakers: father, mother Family Life During Childhood: It was good DCF Involvement? No Mother's Age (Current/): 64 Relationship w/Mother: Lives in [place], close Father's Age (Current/): 72 Relationship w/Father: Close with Father Any Sibling(s)? Yes Sibling's Gender(s)/Age(s): male Sibling 1:, male Sibling 2: Relationship w/Sibling(s): 38yo Marvin, 36yo Mukul; close to brother Relationship w/Friends: NA friends, and sponsor - Tamika she lives in the [place], [place] Family Psych/Sub Abuse/Add Hx: drug of choice (Brothers ETOH) Number of Pregnancies: 2 Number of Miscarriages: 0 Number of Abortions: 0 Abuse/Trauma History Trauma History/Current Trauma: Pt said a box fell on her at [employer] Victim or Perpretator? victim (NA) History of Trauma/Abuse Treatment? No Abuse/Trauma Treatment: Pt did not report sexual trauma Legal History Current Legal Status: none Have you ever been arrested No Hx of Juvenile Legal Charges? No Hx of Adult Legal Charges? No Psychosocial History Primary Support System: mother, sibling(s), friend Strengths/Capabilities: Pt is motivated for treatment and would like to learn new coping skills. Weaknesses: Chronic relapse ETOH, non-compliance with treatment - follow-up care from [facility] recent treatment, family issues Physical Limitations (Interventions): PT. states she cannot walk, needs wheelchair Last Physical: 1year ago History of Seizures? Yes Last Seizure: 2015 ETOH related History of Blackouts? No ADL Limitations: Poor ADL's [place]/Social/Peer Relations NA friend, and sponsor Meaningful Activities: Reading, adult coloring books, TV Childhood Judaism: Quaker Current Caodaism Affiliation: Quaker Is Spirituality Important to You? NO Patient's Ethnicity: Welsh Cultural/Ethnic Issues: NONE Are There Developmental Issues? No Milestones Achieved: WNL Psychiatric Treatment History Psych Treatment Inpatient Treatment Yes Outpatient Treatment Yes Location of Treatment [facility], [facility], and [facility] Reason for Treatment alcohol abuse and depression and anxiety Dates of Treatment Pt reported the past 5 yrs Response to Treatment fair Current Web Systems Developer: NONE Treatment of Prior Episodes: UnKNOWN - Chronic Relapse ETOH Diagnosis: Alcohol, depression and anxiety Psychodynamic Issues: Chronic relapse, Mental HEalth issues, non-compliance wiht medications and treatment Risk Factors: chronic/serious med cond., history of suicide atmpts, substance abuse, limited support Substance Use/Abuse History Drug Use/Abuse Substance Used/Abused Alcohol First Use 20's Last Used 2 days ago How much used/taken 1/2 pint vodka How often daily For how long past 3 weeks Route of use oral Have Had Periods of Sobriety? Yes Explain: stated years ago was sober when her children were young Relapse History? Yes Explain: Chronic relapse with ETOH Have You Ever Attended AA? Yes Do You Attend AA Currently? No Do You Have a Sponsor? Yes Other Community Resources Used: PT stated doesn't attend meeting invast 2 months, unsure if has spoken to sponsor in Substance Abuse Treatment Substance Abuse Treatment Inpatient Treatment Yes Outpatient Treatment Yes Location of Treatment [facility], [place], and [facility] Reason for Treatment Alcohol Dates of Treatment unlcear Response to Treatment fair Comments: PT was just at [facility] per her report for detox, no aftercare per pt. Sexual History Sexually Active No # of partners 0 Sexual Orientation Heterosexual Use of Protection No Sexual Concerns: No Education History Highest Level of Education: high school/GED Highest Grade Completed: 12th Preferred Learning Style: visual (visual ) HX of Learning Difficulties: None reported Barriers to Learning: None reported Special Communication Needs: None reported Employment History Employment NONE Not in Labor Force: NO WORK SINCE 2011 Vocation/Occupational Hx: Last worked at [employer] in 2011 No. of Jobs in Last 5 Years: 0 History Have You Been in The ? No Current Mental Status Problem List: 1. Major depressive disorder, recurrent, unspecified 2. Alcohol dependence Mental Status Orientation: Person, Place, Situation Affect: Anxious, Depressed, Hopeless, Manic Speech: WNL Neuro-vegetative: Anhedonia, Appetite Decreased, Concentration Poor, Energy Decreased, Loss of Interest, Sleep Disturbance Appearance Appearance- Dress/Hygiene: Pt was dressed in hospital gown, disheveled hair. Behaviors Thought Process: WNL Thought Content: Auditory Hallucinations Memory: Impaired Insight: Poor SI/HI Risk Assessment Past Suicidal Ideation/Attempts Yes Current Suicidal Ideation/Att No Past Homicidal Ideation/Att: No Current Homicidal Ideation/Attempts No Degree of Intent: made attempt Danger To: Self Gravely Disabled: Lack of Insight, Poor Impulse Control, Poor Judgment Risk Factors: High Anxiety/Distress, SA/MH Hospitalization(s), Poor impulse control, Substance Abuse Lethality Ratin - Conclusion and Recommendations for treatment - and discharge planning
--- NOTE | 2017-01-10 17:15 | SOCIAL WORKER PROG NOTE PSYCH ---
Social Work Progress Note Progress Note Met with Janine this morning, she stated she is having leg pain and cannot walk with a walker, wanted her pain medication nd a wheelchair. She stated she is hearing voices but cannot tell me what they are saying. She denied SI/HI, no VH. Pt. stated "I'm very impulsive, compulsive..I got angry at the voices, the voices were telling me I was a bad person and a bad mother." - in reference to prior to coming to the ED. She reports feeling shaky and chills and sweats - stated 'I don't think the medication is working...I want my Lyrica." She had just seen the prescriber and wasn't sure what was talked about. She seemed to be medication seeking. Janine stated her 2 children 12yo and 14yo live withtheir Father (down the road from where Pt. lives), and she sees them a "few times per month", she wants to see them more often. She stated they are doing well. She is x4yrs, stated she just completed detox at [facility], and could not remember the follow-up discharge plan. She stated she has been drinking ETOH up to 1/2 liter Vodka daily on and off for the past couple of months. She stated she was sober for years, but started drinking 4yrs ago (coincides with divorce). She stated she has gone to NA in past but not for past couple of months. Denied leagal issues,. She stated "there are pills at my Grandmother's house, and alchohol at my Brother's...I don't feel safe going back there to live."
--- NOTE | 2017-01-10 19:47 | History & Physical ---
General Information and HPI MD Statement: I have seen and personally examined ERNESTO ZAMORA and documented this H&P. The patient is a 41 year old F who presented with a patient stated chief complaint of "I plan to overdose with pills"]. Source of Information: patient Exam Limitations: no limitations History of Present Illness: 41-year-old female with history of anxiety depression and alcohol abuse. Recently depressed. With suicidal ideations and try the suicide attempt taking 12 Lyricas over the course of the day before coming to the emergency room. She states she is hearing voices telling her to hurt herself. Patient also has a history of chronic back pain and states she needs her medications Allergies/Medications Allergies: Coded Allergies: NSAIDS (Non-Steroidal Anti-Inflamma (Intermediate, HIVES, RASH, STOMACH PAIN 05/21) Home Med list Fluoxetine HCl 20 MG CAPSULE 2 CAP PO DAILY MENTAL HEALTH (Reported) Hydroxyzine Pamoate 50 MG CAPSULE 1 CAP PO Q6H ANXIETY (Reported) Methylprednisolone 4 MG TAB.DS.PK STEROID TAPER (Reported) Olanzapine 10 MG TABLET 1 TAB PO QPM MENTAL HEALTH (Reported) Pregabalin (Lyrica) 150 MG CAPSULE 1 CAP PO TID SPINAL CORD/NERVE PAIN ( Reported) Quetiapine Fumarate 300 MG TABLET 1 TAB PO QHS MENTAL HEALTH (Reported) Quetiapine Fumarate 100 MG TABLET 1 TAB PO TID MENTAL HEALTH (Reported) Tizanidine HCl (Zanaflex) 2 MG CAPSULE 1 CAP PO AD MUSCLE SPASMS (Reported) Tramadol HCl 50 MG TABLET 1 TAB PO PRN PAIN - SPINAL STENOSIS (Reported) Compliance With Home Meds: UNKNOWN Past History Travel History Traveled to [place] past 21 day No Medical History Neurological: NONE EENT: NONE Cardiovascular: NONE Respiratory: NONE Gastrointestinal: NONE Hepatic: NONE Renal: NEUROGENIC BLADDER SELF CATHETERIZES Musculoskeletal: spinal stenosis, L4, L5,S1,S2 HERNIATED & SLIPPED DISK. Psychiatric: alcohol dependence, anxiety, depression, insomnia Endocrine: NONE Blood Disorders: NONE Cancer(s): NONE MANAGER PSYCHOLOGY/Reproductive: NONE Isolation History: Standard Surgical History Surgical History: non-contributory Past Family/Social History Psychosocial History ETOH Use: alcoholic Illicit Drug Use: benzodiazepines Employment History Employment NONE Profession/Employer Last worked at [employer] in 2011 Review of Systems Review of Systems Constitutional: Reports: see HPI. Exam & Diagnostic Data Last 24 Hrs of Vital Signs/I&O Vital Signs Date Time Temp Pulse Resp B/P Pulse O2 O2 Flow FiO2 Ox Delivery Rate 01/10 1604 97.7 98 110/67 01/10 1602 97.7 98 110/67 01/10 1230 87 132/88 01/10 1228 87 132/88 01/10 1000 90 135/80 01/10 0757 97.1 95 128/81 01/10 0750 97.1 95 126/81 01/09 1942 96.7 77 115/70 Intake & Output 01/10 1600 01/10 0800 01/10 0000 Intake Total Output Total Balance Patient 200 lb Weight Physical Exam General Appearance Alert, Oriented X3, Cooperative Skin No Rashes, No Breakdown HEENT PERRLA, EOMI Neck Supple, No JVD, No thryomegaly Lymphatic Axillary nl, Cervical nl Cardiovascular Regular Rate Lungs Clear to Auscultation Abdomen Soft, No Tenderness Neurological Exam Findings: may be slight weakness in legs using a walker Cranial Nerves II through XII: Intact Extremities No Cyanosis, No Edema Vascular Normal Pulses, Pulses Symmetrical Last 24 Hrs of Labs/Kar: Laboratory Tests 01/09/17 1503: Urine Opiates Screen < 100.00, Methadone Screen 40, Barbiturate Screen < 60, Ur Phencyclidine Scrn < 6.00, Amphetamines Screen < 100, U Benzodiazepines Scrn < 85, Urine Cocaine Screen < 50, Urine Cannabis Screen < 5.00, Urine Test NEGATIVE 01/09/17 1453: Anion Gap 12, Estimated GFR > 60, BUN/Creatinine Ratio 15.0, Glucose 89, Calcium 9.6, Total Bilirubin 0.6, AST 18, ALT 23, Alkaline Phosphatase 97, Total Protein 7.6, Albumin 4.6, Globulin 3.0, Albumin/Globulin Ratio 1.5, Triglycerides 99, Cholesterol 286 H, LDL Cholesterol, Calc 213 H, HDL Cholesterol 54, Cholesterol/HDL Ratio 5 H, TSH 2.460, CBC w Diff NO MAN DIFF REQ, RBC 4.61, MCV 80.8 L, MCH 27.4, RDW 17.0 H, MPV 6.9 L, Gran % 61.7, Lymphocytes % 24.6, Monocytes % 10.8 H, Eosinophils % 2.6, Basophils % 0.3, Absolute Granulocytes 3.5, Absolute Lymphocytes 1.4, Absolute Monocytes 0.6, Absolute Eosinophils 0.1, Absolute Basophils 0, PUBS MCHC 33.8, Serum Alcohol < 10.0 Diagnostic Data ITS Data Unobtainable at this time Assessment/Plan As Ranked By This Provider Problem List: 1. Depressive disorder 2. Alcohol dependence Miscellaneous Miscellaneous Documentation Attending Case Discussed With: PARAG MCCALL MD Primary Care Physician: PATIENT HAS NO PRIMARY CARE DR Patient sees these Specialists Psychiatry Level of Patient Care: [facility] Consults Needed: Consulting Specialty: Psychiatry Consulting Physician: Parag Mccall MD Reason for Consult: depression/suicidal ideation/OD
[2017-01-11] VITALS (12 sets, daily range): BP systolic 95–147; BP diastolic 51–80
--- NOTE | 2017-01-11 11:35 | CP SOUTH PROGRESS NOTE PSYCH ---
Psych (Inpt) Progress Note Progress Note Include the following elements, when applicable: Involvement in the active treatment of the patient with behavioral observations of the patient and the patient's response to the treatment. Review of the ongoing treatment process in the context of the treatment plan. Indication of how multi-disciplinary staff members are carrying out the treatment plan. Plans for future interventions and recommendations for revision of the treatment plan. Liaison with other physicians/providers. Progress Note: [I discussed this patient's progress to date, current mental status, treatment process in the context of the treatment plan, and discharge planning with staff/ team in the daily morning inpatient team meeting. I also met with the patient myself in individual session.] S: "My back is killing me." O: Current Medications Sig/Minnie Start time Last Medication Dose Route Stop Time Status Admin Acetaminophen 650 MG Q6P PRN 01/09 1645 AC 01/09 PO 1645 Al Hydroxide/Mg 30 ML Q4-6 PRN PRN 01/09 1645 AC Hydroxide PO Cyclobenzaprine HCl 10 MG Q8P PRN 01/11 1145 UNVr PO Cyclobenzaprine HCl 5 MG Q8P PRN 01/10 1045 DC 01/11 PO 0820 Folic Acid 1 MG DAILY 01/09 1632 DC 01/11 PO 01/11 1001 0820 Gabapentin 600 MG 0800,1400,01/11 1400 UNVr PO Gabapentin 300 MG 0800,1400,01/10 2000 DC 01/10 PO 1934 Gabapentin 300 MG Q6P PRN 01/09 1645 DC 01/09 PO 2124 Lorazepam 0.5 MG ONCE 01/14 0000 AC PO 01/14 0001 Lorazepam 0.5 MG Q6H 01/13 0000 AC PO 01/13 1801 Lorazepam 0.5 MG ONCE ONE 01/12 1800 AC PO 01/12 1801 Lorazepam 1 MG Q6H 01/12 0000 AC PO 01/12 1201 Lorazepam 1.5 MG Q12H 01/11 0600 AC 01/11 PO 01/11 1801 0536 Lorazepam 1.5 MG .STK-MED ONE 01/11 0113 DC PO 01/11 0114 Lorazepam 1 MG Q12H 01/11 0000 AC 01/10 PO 01/11 1201 2312 Lorazepam 1.5 MG .STK-MED ONE 01/10 1809 DC PO 01/10 1810 Lorazepam 0.5 MG .STK-MED ONE 01/10 1221 DC PO 01/10 1222 Lorazepam 1.5 MG Q6 01/10 0600 DC 01/10 PO 01/10 1801 1815 Lorazepam 2 MG Q2P PRN 01/09 1645 AC PO Lorazepam 1 MG Q2P PRN 01/09 1645 AC 01/09 PO 1902 Magnesium Hydroxide 30 ML AT BEDTIME PRN 01/09 1645 AC PO Multivitamins 1 TAB DAILY 01/09 1632 AC 01/11 PO 0820 Nicotine 14 MG 0800 01/10 1215 AC 01/11 TOP 0819 Quetiapine Fumarate 100 MG 0800,1400 01/11 1400 UNVr PO Quetiapine Fumarate 300 MG 0 01/10 2200 AC 01/10 PO 2117 Quetiapine Fumarate 50 MG 0800,1400 01/10 1145 DC 01/11 PO 0820 Thiamine HCl 100 MG DAILY 01/09 1632 DC 01/11 PO 01/11 1001 0820 Tramadol HCl 50 MG Q6-PRN PRN 01/10 1045 AC 01/11 PO 0819 Trazodone HCl 100 MG AT BEDTIME 01/09 2200 DC 01/09 PO 2306 Vital Signs Date Time Temp Pulse Resp B/P Pulse O2 O2 Flow FiO2 Ox Delivery Rate 01/11 1013 96 117/70 01/11 0808 97.7 90 111/54 /09 0808 97.7 90 111/54 / 0613 97.3 80 18 95/62 /08 2123 97.2 89 106/71 /08 1950 97.2 80 103/63 03/08 1948 97.2 80 103/63 /08 1604 97.7 98 110/67 03/08 1602 97.7 98 110/67 03/08 1230 87 132/88 03/08 1228 87 132/88 A: Chart, progress notes, VS, labs, CIWA (scoring 0-4 in last 24 hours) and medication list were reviewed. Met with patient today who presented laying in bed. On encounter, she reported increased back pain. She was A&Ox3. Affect was constricted. Speech was normal in rate, tone and volume. Eye contact was appropriate. Mood was dysphoric and irritable. She reported some improvement in sleep since restarting Seroquel 300mg QHS, but awakened sporadically during the night d/t chronic back pain. She reported anxiety of 6/10 (10 being the worst) and depression of 4/10 (10 being the worst). She reported feeling hopeless and helpless 2/2 to chronic pain issues. She denied feeling worthless or guilty. She denied active and passive suicidal ideation, plans and intent. She denied homicidal ideation. She reported continued AH of voices saying "negative things about me." She denied AH were comman in nature, and reported these were less intense since restarting Seroquel. She denied VH. Thought process was linear. Thought content was precoccupied over chronic pain. Cognition was grossly intact. Patient reported tolerating medications well and denied untoward medication effects. Discussed with patient increasing Flexeril from 5mg TID prn to 10mg TID prn for back spasms. Also discussed with patient increasing Gabapentin from 300mg TID to 600mg TID for neuropathic pain; and increasing Seroquel from 50mg BID to 100mg BID for auditory hallucinations and anxiety. Patient verbalized understanding of medication adjustments and was in favor of increases. P: 1. Continue monitoring the patient on unit for safety, mood, psychosis and suicidal ideation. 2. Increase Flexeril from 5mg TID prn to 10mg TID prn for back spasms. 3. Increase Gabapentin from 300mg TID to 600mg TID for neuropathic pain. 4. Increase Seroquel from 50mg BID to 100mg BID for AH/anxiety. Continue Seroquel 300mg at HS for insomnia for now. 5. Continue Ativan taper as ordered for alcohol withdrawal and CIWA monitoring per protocol. 6. Dispo planning per primary team.
--- NOTE | 2017-01-11 16:15 | SOCIAL WORKER PROG NOTE PSYCH ---
Social Work Progress Note Progress Note Patient had phone conferene with her brother, Marvin, and [facility] Marvin expressed concern for patients discharge from the hospital and wanting her placed in longer treatment. Jesse stated that she has been in touch with [facility] and they need an assessment from and for her to complete phone screening. It does not appear patient is on the waiting list at this time until those are completed. Patient expressed concern that she may not go directly from to [facility] due to long waiting list. She stated that when she was at [facility]'s detox she went directly to their [facility] program all 3 times she was there. Patient is requesting to discharge in order to go to [facility] detox for smoother transition to their [facility] program which she believes will happen from their detox.
--- NOTE | 2017-01-11 22:07 | RADIOLOGY REPORT ---
EXAMINATION: XR CHEST CLINICAL INFORMATION: Right-sided rib pain. Hemoptysis. COMPARISON: None TECHNIQUE: 2 views of the chest were obtained. FINDINGS: There is a small patchy region of airspace opacity in the right perihilar lung in the right upper lobe. Left lung clear. Cardiac and mediastinal contours are normal. Heart size is normal. No pulmonary vascular congestion. No pleural effusion or pneumothorax. IMPRESSION: Small patchy airspace disease right upper lobe.
--- NOTE | 2017-01-11 23:46 | Event Note ---
Event Note Event Note: I was notified by RN, that patient has multiple complaints. She reported that she banged her right side of her ribcage on the bedside table and had pain. She has ?h/o right upper lung mass and felt short of breath and "threw up blood"? None of these were witnessed by staff in [facility]. I ordered a CXR which is suggestive of a small patchy airspace disease of right upper lobe ?consistent with patient's story? Patient was asleep when I was down to evaluate another patient. RN reported her vitals were stable, no dyspnea or hypoxia. Afebrile. No cough or phlegm. For now, I asked them to monitor the patient. If she is febrile or there is e/o cough/phlegm, we can initiate antibiotics. Dr. Sim to be notified in AM. Patient to be re-evaluated to find out more details about her ?right upper lobe mass and if she has been worked up for same ?CT.
[2017-01-12] VITALS (7 sets, daily range): BP systolic 115–133; BP diastolic 67–80
--- NOTE | 2017-01-12 10:32 | CP SOUTH PROGRESS NOTE PSYCH ---
Psych (Inpt) Progress Note Progress Note Include the following elements, when applicable: Involvement in the active treatment of the patient with behavioral observations of the patient and the patient's response to the treatment. Review of the ongoing treatment process in the context of the treatment plan. Indication of how multi-disciplinary staff members are carrying out the treatment plan. Plans for future interventions and recommendations for revision of the treatment plan. Liaison with other physicians/providers. Progress Note: [I discussed this patient's progress to date, current mental status, treatment process in the context of the treatment plan, and discharge planning with staff/ team in the daily morning inpatient team meeting. I also met with the patient myself in individual session.] S: "I'm really anxious." O: Current Medications Sig/Minnie Start time Last Medication Dose Route Stop Time Status Admin Acetaminophen 650 MG .STK-MED ONE 01/11 1615 DC PO 01/11 1616 Acetaminophen 650 MG Q6P PRN 01/09 1645 AC 01/11 PO 1620 Al Hydroxide/Mg 30 ML Q4-6 PRN PRN 01/09 1645 AC Hydroxide PO Alprazolam 1.5 MG .STK-MED ONE 01/11 1808 DC PO 01/11 1809 Cyclobenzaprine HCl 10 MG Q8P PRN 01/11 1145 AC 01/12 PO 0830 Gabapentin 300 MG 0800,1400,01/12 1400 CAN PO Gabapentin 300 MG 0800,1400,1999 PRN 01/12 1000 DC PO 01/12 1359 Gabapentin 600 MG 0800,1400,01/11 1400 DC PO Lorazepam 0.5 MG ONCE 01/14 0000 AC PO 01/14 0001 Lorazepam 0.5 MG Q6H 01/13 0000 AC PO 01/13 1801 Lorazepam 0.5 MG ONCE ONE 01/12 1800 AC PO 01/12 1801 Lorazepam 1 MG Q6H 01/12 0000 DC 01/12 PO 01/12 1201 1211 Lorazepam 1.5 MG Q12H 01/11 0600 DC 01/11 PO 01/11 1801 1814 Lorazepam 2 MG Q2P PRN 01/09 1645 AC PO Lorazepam 1 MG Q2P PRN 01/09 1645 AC 01/09 PO 1902 Magnesium Hydroxide 30 ML AT BEDTIME PRN 01/09 1645 AC PO Multivitamins 1 TAB DAILY 01/09 1632 AC 01/12 PO 0827 Nicotine 14 MG 0800 01/10 1215 AC 01/12 TOP 0827 Patient Medication 1 UNIT ONE NR 01/12 1115 AC Teaching ED 01/12 1715 Pregabalin 100 MG 0800,2200 01/12 1045 AC 01/12 PO 1054 Quetiapine Fumarate 150 MG 0800,1400 01/13 0800 AC PO Quetiapine Fumarate 100 MG 0800,1400 01/11 1400 AC 01/12 PO 01/12 1430 0827 Quetiapine Fumarate 300 MG 2200 01/10 2200 AC 01/11 PO 2201 Tramadol HCl 50 MG DAILY NEEDED 01/14 0600 CAN PO 01/16 2300 Tramadol HCl 50 MG Q12P PRN 01/12 1030 CAN PO 01/13 2300 Tramadol HCl 50 MG Q6-PRN PRN 01/10 1045 DC 01/12 PO 0830 Vital Signs Date Time Temp Pulse Resp B/P Pulse O2 O2 Flow FiO2 Ox Delivery Rate 01/12 1229 90 117/74 01/12 1223 90 117/74 01/12 0836 97.2 88 115/76 01/11 2224 96.2 90 127/78 01/11 2139 Room Air 01/11 1954 96.7 99 136/51 01/11 1917 96.7 99 136/51 01/11 191 96.7 99 136/51 01/11 1847 92 147/70 01/11 1551 90 128/72 01/11 1550 90 128/72 01/11 1440 98 124/80 01/11/17 CXR: FINDINGS: There is a small patchy region of airspace opacity in the right perihilar lung in the right upper lobe. Left lung clear. Cardiac and mediastinal contours are normal. Heart size is normal. No pulmonary vascular congestion. No pleural effusion or pneumothorax. IMPRESSION: Small patchy airspace disease in right upper lobe. A: Chart, progress notes, VS, CIWA (scoring 0-3 x last 24 hours), labs, CXR (01/11/17 ), and medication list were reviewed. Discussed patient's progress with nursing staff who reported the patient continues to report back pain. Additionally, last evening, the patient reportedly banging the right side of her rib cage on a bedside table in her room. She made reports of "chest pain", "shortness of breath", and "threw up blood." There was no witnessed evidence of hemoptysis per nursing staff. A CXR was completed and patient was evaluated by Dr.Sitalaks Javier. Please see MD note for additional details. Met with patient today, together with Shu Sigala LCSW. The patient denied symptoms of chest pain, SOB, and denied hemoptysis. We explained to patient that she would not be discharged today, given her recent OD attempt on Lyrica and continued symptoms of auditory hallucinations and report of passive SI today in the context of anxiety. She reported need for inpatient rehab program post- discharge from [facility]. We told patient that referrals would be sent to [facility] and [place]. Also discussed with patient sending a referral to [facility] in the event that an immediate rehab bed was not available prior to discharge. Patient agreed to all referrals. On encounter today, patient was alert and oriented x 4. She was up in the milieu and reported attending her first group today. Mood was "anxious" and much less irritable than yesterday. Affect was constricted. Speech was normal in rate tone and volume. She reported improved sleep and stable appetite. She reported increased anxiety d/t chronic pain. She reported passive SI secondary to anxiety and pain. She deneid suicidal plans or intent. She gave a safety promise while on unit. She denied homicidal ideation. She reported vague AH, non-command in nature. She denied visual hallucinations. Thought process was linear and goal directed. Thought content was appropriate. Cognition was grossly intact. Patient reported tolerating increase in Seroquel from 50mg BID to 100mg BID today. Patient requested to add another dose of Seroquel in the afternoon for a total of four times a day dosing. Recommended TID dosing to keep regimen more simplified; ideally recommended BID dosing, however patient was not agreeable. Patient agreeable to increasing Seroquel to 150mg BID for AH/anxiety, and continue 300mg at bedtime for insomnia/AH as she remains unwilling to trial an alternative antipsychotic. Will restart Lyrica for neuropathic pain given persistent reports of back pain. Consulted Grey, inpatient hospital pharmacist, as patient has been off of prescribed Lyrica 150mg TID for almost 1 week. Per pharmacist recommendation, patient can be restarted on Lyrica 100mg BID which can be increased in the next few days as tolerated. Patient also requested Gabapentin be discontinued as it has had no effect on pain management or anxiety. P: 1. Continue monitoring patient on unit for safety, suicidal ideation, mood, AH, and pain. 2. Restart Lyrica at 100mg BID for neuropathic pain. Monitor over weekend, and consider increase as tolerated on Sunday/Sunday. 3. Discontinue Gabapentin per patient request d/t poor efficacy on pain and anxiety. 4. Increase Seroquel tomorrow from 100mg BID to 150mg BID for anxiety/AH. Continue Seroquel 300mg at bedtime for insomnia/AH. Consider increase over weekend if continued AH. 5. If AH stabilizes over the weekend and patient continues with depressive symptoms, consider restarting Prozac. 6. Continue Ativan taper as ordered for alcohol withdrawal. Continue monitoring on CIWA protocol as ordered. 7. Dispo sr. merchandise planner per primary team.
--- NOTE | 2017-01-12 13:57 | SOCIAL WORKER PROG NOTE PSYCH ---
Social Work Progress Note Progress Note After discussing with the team about patients desire to discharge the hospital, it has been determined that patient needs to continue her detox with [facility] and can not be transferred out to another facility. Amber Salazar APRN and I informed patient of the teams discussion and concern mostly related to her serious OD that occurred prior to admission. Patient understood and was not resistent to this. She signed TIFFANY's for [facility] and [place] and expressed desire to be referred to residential treatment post hospitalization. I faxed over patients clinical to both programs today. I also spoke with her social media community manager, Elizabeth, who informed me that patient is not on waiting list at any programs yet. She did give me a few more resources that I am going to inform patient about to see if she is interested. Patient did endorse +SI with no plan, mostly related to her current situation and feeing anxious about discharge plan from the hospital.
[2017-01-13] VITALS (9 sets, daily range): BP systolic 108–126; BP diastolic 65–80
--- NOTE | 2017-01-13 13:09 | CP SOUTH PROGRESS NOTE PSYCH ---
Psych (Inpt) Progress Note Progress Note Include the following elements, when applicable: Involvement in the active treatment of the patient with behavioral observations of the patient and the patient's response to the treatment. Review of the ongoing treatment process in the context of the treatment plan. Indication of how multi-disciplinary staff members are carrying out the treatment plan. Plans for future interventions and recommendations for revision of the treatment plan. Liaison with other physicians/providers. Progress Note: Notes reviewed, discussed patient progress with nursing staff. Interviewed patient this morning. Continues have difficulty with sleep. We discussed numerous sleep options, most which is trials in the past. We discussed a trial of doxepin including the risks and side effects and janine agrees to trial this medication tonight. Janine also requested going back to her outpatient dose of Lyrica. Discussed the importance of a slower up titration, though agreed to adjust Lyrica to 100 mg 3 times a day. She feels her mood is improving somewhat however remain significant only anxious. She denies suicidal or homicidal ideation. Vitals reviewed and are within normal limits. No new laboratory results today. Mental status exam: Overweight woman in wheelchair. Cooperative with interview with good eye contact. No abnormal movements noted. Speech was within normal limits. Mood was "anxious ", affect was constricted, congruent, non-labile. Thought processes logical and linear. Thought content was within normal limits. Denies perceptual disturbances. Cognition was grossly intact. Insight and judgment were fair. A/P: Increase Lyrica to 100 mg 3 times a day. Start doxepin 10 mg at bedtime for sleep. Otherwise continue present management as per primary team.
[2017-01-14] VITALS (8 sets, daily range): BP systolic 104–133; BP diastolic 63–84
--- NOTE | 2017-01-14 13:34 | CP SOUTH PROGRESS NOTE PSYCH ---
Psych (Inpt) Progress Note Progress Note Include the following elements, when applicable: Involvement in the active treatment of the patient with behavioral observations of the patient and the patient's response to the treatment. Review of the ongoing treatment process in the context of the treatment plan. Indication of how multi-disciplinary staff members are carrying out the treatment plan. Plans for future interventions and recommendations for revision of the treatment plan. Liaison with other physicians/providers. Progress Note: Notes reviewed, discussed patient progress with nursing staff. Interviewed patient this morning. Janine is highly somatically oriented. Describes chest tightness that she has experienced over the course of the past few days. I asked her if she has asthma, which she says she does. Unusually, she notes that she has had multiple periods in the past where she has had asthma to the extent that she is required steroid infusion, however she is on no maintenance asthma medication. We discussed trialing albuterol for her current chest tightness which she is in agreement with. She denies any SI or HI today, and nursing reports no that she slept well last night. Vitals reviewed and notable for being within normal limits. No new laboratory results today. Mental status exam: Overweight woman in wheelchair. Cooperative with interview with good eye contact. No abnormal movements noted. Speech was within normal limits. Mood was "I'm worried about my chest", affect was constricted, congruent, non-labile. Thought processes perseverative. Thought content was highly somatic. Denies perceptual disturbances. Denies SI/HI. Cognition was grossly intact. Insight and judgment were fair. A/P: The differential for Janine's described chest discomfort is large and made more complicated by her underlying anxiety. For now, objectively she does not evidence any distress or disturbance in vital signs. We'll try albuterol to see if this relieves some chest discomfort. Although of low current concern, must keep in mind that her ambulation status increases her risk for DVT/PE. I have asked the nursing staff to request a hospitalist consult to evaluate Janine today. We'll continue to monitor her closely.
--- NOTE | 2017-01-14 15:26 | PN- Att Addend ---
Attending Addendum Attending Brief Note An EKG was obtained which was reviewed. It showed normal sinus rhythm with normal intervals and axis. There is diffuse nonspecific T-wave flattening. A troponin was also obtained which which was less than 0.01. At this time no further workup is required.
[2017-01-15] VITALS (8 sets, daily range): BP systolic 107–125; BP diastolic 63–71
--- NOTE | 2017-01-15 15:20 | CP SOUTH PROGRESS NOTE PSYCH ---
Psych (Inpt) Progress Note Progress Note Include the following elements, when applicable: Involvement in the active treatment of the patient with behavioral observations of the patient and the patient's response to the treatment. Review of the ongoing treatment process in the context of the treatment plan. Indication of how multi-disciplinary staff members are carrying out the treatment plan. Plans for future interventions and recommendations for revision of the treatment plan. Liaison with other physicians/providers. Progress Note: [I discussed this patient's progress to date, current mental status, treatment process in the context of the treatment plan, and discharge planning with staff/ team in the daily morning inpatient team meeting. I also met with the patient myself in individual session.] S: "I'm anxious." O: Current Medications Sig/Minnie Start time Last Medication Dose Route Stop Time Status Admin Acetaminophen 650 MG .STK-MED ONE 01/15 0355 DC PO 01/15 0356 Acetaminophen 650 MG .STK-MED ONE 01/14 1853 DC PO 01/14 1854 Acetaminophen 650 MG Q6P PRN 01/09 1645 AC 01/15 PO 0401 Al Hydroxide/Mg 30 ML Q4-6 PRN PRN 01/09 1645 AC 01/14 Hydroxide PO 0810 Albuterol Sulfate 2 PUF Q4P PRN 01/14 1215 AC 01/14 INH 1659 Cyclobenzaprine HCl 10 MG Q8P PRN 01/11 1145 AC 01/13 PO 1701 Doxepin HCl 10 MG AT BEDTIME PRN 01/15 1526 DC PO Doxepin HCl 10 MG AT BEDTIME 01/13 2200 DC 01/14 PO 2124 Gabapentin 300 MG Q8P PRN 01/15 1100 AC 01/15 PO 1114 Lorazepam 2 MG Q2P PRN 01/09 1645 AC PO Lorazepam 1 MG Q2P PRN 01/09 1645 AC 01/09 PO 1902 Magnesium Hydroxide 30 ML AT BEDTIME PRN 01/09 1645 AC PO Mirtazapine 7.5 MG AT BEDTIME 01/15 2200 AC PO Multivitamins 1 TAB DAILY 01/09 1632 AC 01/15 PO 0817 Nicotine 14 MG 0800 01/10 1215 AC 01/15 TOP 0816 Pregabalin 100 MG TIDAC 01/13 1700 AC 01/15 PO 1229 Quetiapine Fumarate 100 MG 0800,1200,1600 01/16 0800 AC PO Quetiapine Fumarate 150 MG 0800,1400 11 0800 DC 01/15 PO 1425 Quetiapine Fumarate 25 MG Q8P PRN 01/12 1445 AC 01/15 PO 1232 Quetiapine Fumarate 300 MG 2200 01/10 2200 AC 01/14 PO 2124 Vital Signs Date Time Temp Pulse Resp B/P Pulse O2 O2 Flow FiO2 Ox Delivery Rate 01/15 1230 91 125/63 01/15 1228 91 125/63 01/15 0809 97.0 87 114/71 01/15 0759 97.0 87 114/71 01/14 1954 97.9 93 104/63 01/14 1949 97.9 93 104/63 A: Chart, progress notes, VS, labs, CIWA (scored 0-2 over last 48 hours), and medication list were reviewed. Over the weekend, patient endorsed many somatic complaints. Lyrica was increased from 100mg BID to 100mg TID for neuropathic pain. Doxepin 10mg at bedtime was started for insomnia. Rpt EKG was completed d/ t c/o chest tightness. EKG showed normal sinus rhythm with normal intervals and axis. There was diffuse nonspecific T-wave flattening. A troponin was also obtained which was less than 0.01. Per skip miner blasting Dr. Jackson, no further medical work up was recommended. Albuterol prn was started for asthma. Met with patient today, together with Shu Sigala LCSW. Interviewed patient in room. Mood appeared less irritable than in previous encounters. She was more easily engagable in conversation. Presented A&Ox4. She reported her mood was "a little better" and still reported anxiety. Affect was calm and constricted. She had no physical complaints. She seemed better adjusted to milieu. Patient denied passive and active suicidal ideation, plans and intent. She denied homicidal ideation. She reported low intensity AH of a voice "telling me I'm a bad person." Patient reported AH to be tolerable and not causing her acute distress. She denied AH was command in nature. She denied VH. She rated anxiety of 6/10 (10 being the worst) and anxiety of 3/10 (10 being the worst). Thought process was linear. Thought content was much less somatic, but perseverative on her somatic complaints over the weekend. She noted she had lab tests and an EKG done, which she appeared to receive secondary gain from the attention as evidenced by her change in affect (brighter and smiling) while sharing this information. Her tone in voice suggested disappointment when learning her EKG and troponin were stable. She requested dosing of Seroquel be changed from 150mg BID to 100mg TID for anxiety and AH and to continue 300mg QHS at bedtime for insomnia. Reviewed with patient that multiple dosing schedule may be difficult to adhere to outpatient. Patient verbalized that she had been adherent to this regimen prior to running out of medication which resulted in this inpatient hospitalization. Agreed to change dosing schedule. Patient continued to report awakening during the night. Reviewed the risk/ benefit/se profiles of Remeron. Patient verbalized understanding of education and was agreeable to trial. Patient reported discontinuation of Ativan well. She denied subjective reports of alcohol withdrawal. Patient scored 0-2 on CIWA x last 48 hours. VSS. She reported tolerating all medications well and denied untoward medication effects. Patient was agreeable to continue taking. P: 1. Continue monitoring patient on unit for safety, mood, and suicidal ideation. 2. Start Gabapentin 300mg Q8H prn for anxiety. 3. Discontinue Doxepin for insomnia given recent history of OD and risk of lethality on TCA. Patient agreeable to trial Remeron 7.5mg QHS for insomnia. 4. Change Seroquel dosing from 150mg BID to 100mg TID to target anxiety/AH. Will continue 300mg QHS for insomnia. 5. Dispo planning per primary team.
--- NOTE | 2017-01-15 16:16 | SOCIAL WORKER PROG NOTE PSYCH ---
Social Work Progress Note Progress Note Patient appears to be somewhat isolative on the unit today, keeping to herself, minimal interaction with peers and staff. Patient reports feeling very anxious and overwhelmed. She denies any SI/HI today but continues to report AH that she reports are lessening. I spoke with [facility] admissions department today and they reported that patient is on "deferred status" due to still remaining in this level of care and fitting criteria for this level of care.They also are requiring a medical prescription for self catheter. Patient is aware of this status. Patient plans to call [facility] tomorrow AM to see status for their program. Patients brother, Marvin, has called this marketing underwriter throughout patients stay and is aware of patients current status as well. He continues to report that patient is unable to return to their fathers house from hospital.
[2017-01-16 07:35] VITALS: BP 118/63
[2017-01-16 07:43] VITALS: BP 118/63
--- NOTE | 2017-01-16 08:40 | CP SOUTH PROGRESS NOTE PSYCH ---
Psych (Inpt) Progress Note Progress Note Include the following elements, when applicable: Involvement in the active treatment of the patient with behavioral observations of the patient and the patient's response to the treatment. Review of the ongoing treatment process in the context of the treatment plan. Indication of how multi-disciplinary staff members are carrying out the treatment plan. Plans for future interventions and recommendations for revision of the treatment plan. Liaison with other physicians/providers. Progress Note: [I discussed this patient's progress to date, current mental status, treatment process in the context of the treatment plan, and discharge planning with staff/ team in the daily morning inpatient team meeting. I also met with the patient myself in individual session.] S: "I didn't sleep that much better last night." O: Current Medications Sig/Minnie Start time Last Medication Dose Route Stop Time Status Admin Acetaminophen 650 MG Q6P PRN 01/09 1645 AC 01/16 PO 0711 Al Hydroxide/Mg 30 ML .STK-MED ONE 01/15 2054 DC Hydroxide PO 01/15 2055 Al Hydroxide/Mg 30 ML Q4-6 PRN PRN 01/09 1645 AC 01/15 Hydroxide PO 205 Albuterol Sulfate 2 PUF Q4P PRN 01/14 1215 AC 01/14 INH 1659 Cyclobenzaprine HCl 10 MG Q8P PRN 01/11 1145 AC 01/16 PO 0711 Doxepin HCl 10 MG AT BEDTIME PRN 01/15 1526 DC PO Doxepin HCl 10 MG AT BEDTIME 01/13 2200 DC 01/14 PO 2124 Gabapentin 300 MG Q8P PRN 01/15 1100 AC 01/15 PO 2130 Lorazepam 2 MG Q2P PRN 01/09 1645 DC PO Lorazepam 1 MG Q2P PRN 01/09 1645 DC 01/09 PO 1902 Magnesium Hydroxide 30 ML AT BEDTIME PRN 01/09 1645 AC PO Mirtazapine 15 MG AT BEDTIME 01/16 2200 UNVr PO Mirtazapine 7.5 MG AT BEDTIME 01/15 2200 DC 01/15 PO 2129 Multivitamins 1 TAB DAILY 01/09 1632 AC 01/16 PO 0743 Nicotine 14 MG 0800 01/10 1215 AC 01/16 TOP 0743 Pregabalin 100 MG TIDAC 01/13 1700 AC 01/16 PO 0743 Quetiapine Fumarate 100 MG 0800,1200,1600 01/16 0800 AC 01/16 PO 0743 Quetiapine Fumarate 150 MG 0800,1400 01/13 0800 DC 01/15 PO 1425 Quetiapine Fumarate 25 MG Q8P PRN 01/12 1445 AC 01/16 PO 0711 Quetiapine Fumarate 300 MG 2200 01/10 2200 AC 01/15 PO 2129 Vital Signs Date Time Temp Pulse Resp B/P Pulse O2 O2 Flow FiO2 Ox Delivery Rate 01/16 1129 88 123/75 01/16 0743 97.7 86 118/63 01/16 0735 97.7 86 118/63 01/15 1956 97.8 90 107/71 01/15 1949 97.0 90 107/71 01/15 1621 95 112/64 01/15 1549 95 112/64 01/15 1230 91 125/63 01/15 1228 91 125/63 A: Chart, progress notes, VS, CIWA (scored 0-2 in last 48 hours), labs and medication list were reviewed. No new labs results today. Met with patient today at 11:30AM. She presented alert and oriented to person, place, time and situation. Affect was calm and constricted. Mood appeared improved. Continued to report mild anxiety. Was much less preoccupied with somatic concerns today. She had no complaints. Eye contact was appropriate. Speech was normal in rate, tone and volume. She reported anxiety was largely related to uncertainty about rehab placements. Reported calling [facility] and [facility] daily, however neither currently have beds. She was provided a rehab list from [facility] for alternative rehab placements and encouraged to call today. She denied acute depressive symptoms. She denied passive and active suicidal ideation, plans and intent. She appeared future oriented to get into rehab and identified this as a treatment need to support her sobriety. She denied homicidal ideation. She denied auditory and visual hallucinations. Reported stable appetite. She reported falling asleep but difficulty staying alseep. Thought process was organized and goal directed. Thought content was appropriate. Cognition was grossly intact. She denied racing thoughts. There was no evidence of paranoia or martha delusions. Reviewed the risk/benefit/se profiles of increasing Remeron at bedtime for insomnia. Patient verbalized understanding and was agreeable to increase. Patient reported tolerating all medications well and denied untoward medication effects. There was no evidence of movement disorder. AIMS = 0. P: 1. Discontinue CIWA protocol. 2. Continue monitoring patient on unit for safety, mood, suicidal ideation and AH. 3. Continue current medications as ordered. 4. Increase Remeron from 7.5mg QHS to 15mg QHS for insomnia. 5. Dispo planning per primary team.
[2017-01-16 11:29] VITALS: BP 123/75
--- NOTE | 2017-01-16 11:43 | SOCIAL WORKER PROG NOTE PSYCH ---
Social Work Progress Note Progress Note Met with pt individually. Pt denies any suicidal thoughts. Pt motivated for follow-up tx at in Rehab and reports that she has been calling [facility] daily, but is still told they don't have beds. Provided pt with a list of additional rehabs for her to try to call.
[2017-01-16 16:08] VITALS: BP 135/73
[2017-01-16 19:50] VITALS: BP 110/58
[2017-01-17 07:54] VITALS: BP 116/65
--- NOTE | 2017-01-17 09:03 | CP SOUTH PROGRESS NOTE PSYCH ---
Psych (Inpt) Progress Note Progress Note Include the following elements, when applicable: Involvement in the active treatment of the patient with behavioral observations of the patient and the patient's response to the treatment. Review of the ongoing treatment process in the context of the treatment plan. Indication of how multi-disciplinary staff members are carrying out the treatment plan. Plans for future interventions and recommendations for revision of the treatment plan. Liaison with other physicians/providers. Progress Note: [I discussed this patient's progress to date, current mental status, treatment process in the context of the treatment plan, and discharge planning with staff/ team in the daily morning inpatient team meeting. I also met with the patient myself in individual session.] S: "I'm feeling better." O: Current Medications Sig/Minnie Start time Last Medication Dose Route Stop Time Status Admin Acetaminophen 325 MG .STK-MED ONE 01/16 1555 DC PO 01/16 1556 Acetaminophen 650 MG .STK-MED ONE 01/16 1552 DC PO 01/16 1553 Acetaminophen 650 MG Q6P PRN 01/09 1645 AC 01/17 PO 0813 Al Hydroxide/Mg 30 ML Q4-6 PRN PRN 01/09 1645 AC 01/15 Hydroxide PO 2059 Albuterol Sulfate 2 PUF Q4P PRN 01/14 1215 AC 01/14 INH 1659 Cyclobenzaprine HCl 10 MG Q8P PRN 01/11 1145 AC 01/16 PO 0711 Gabapentin 300 MG Q8P PRN 01/15 1100 AC 01/15 PO 2130 Magnesium Hydroxide 30 ML AT BEDTIME PRN 01/09 1645 AC PO Mirtazapine 15 MG AT BEDTIME 01/16 2200 AC 01/16 PO 2124 Mirtazapine 7.5 MG AT BEDTIME 01/15 2200 DC 01/15 PO 2129 Multivitamins 1 TAB DAILY 01/09 1632 AC 01/17 PO 0810 Nicotine 14 MG 0800 01/10 1215 AC 01/17 TOP 0810 Pregabalin 100 MG TIDAC 01/13 1700 AC 01/17 PO 0809 Quetiapine Fumarate 100 MG 0800,1200,1600 01/16 0800 AC 01/17 PO 0810 Quetiapine Fumarate 25 MG Q8P PRN 01/12 1445 AC 01/16 PO 1559 Quetiapine Fumarate 300 MG 2200 01/10 2200 AC 01/16 PO 2124 Vital Signs Date Time Temp Pulse Resp B/P Pulse O2 O2 Flow FiO2 Ox Delivery Rate 01/17 0754 96.7 84 116/65 01/16 1950 98.0 98 110/58 01/16 1608 94 135/73 01/16 1129 88 123/75 A: Chart, progress notes, VS, labs, and medication list were reviewed. Vitals signs remain stable. No new lab results today. Reviewed patient's status with nursing staff who reported the patient remains medication seeking. She appears less somatic today than on previous shifts and has been attending milieu groups. Met with patient today. Interviewed patient individually in room. She reported improved mood. Reported anxiety of 4/10 (10 being the worst) and depression of 2 /10 (10 being the worst). She denied passive and active suicidal ideation, plans and intent. She denied homicidal ideation. She reported improved sleep on increased Remeron 15mg at bedtime. She reported stable appetite. She continued to deny auditory and visual hallucinations. She reported last hearing AH 2 days ago which were not command in nature. Thought content was organized and goal directed. Thought content was appropriate. There was no evidence of paranoia or delusions. Cognition was grossly intact. The patient reported tolerating all medications well and denied untoward medication effects. She was future oriented to get into residential rehab at [facility] or [facility], and was agreeable to returning home with her father and brother, and follow-up with [facility] in [place], [place] for continued management of medications and psychiatric symptoms. She reported feeling safe and ready for discharge today, and was scheduled for discharge today, however [employer] transporation was not in service today due to inclement weather. Her brother Marvin and mother were contacted but were unable to transport the patient home today. The patient was encouraged to consider allowing treatment team to schedule VNS services for daily medication administration given her history of OD attempts and recent overdose on Lyrica leading to this inpatient admission. Patient declined VNS but was agreeable to having her brother locking up her medications up at home, whom she lives with. Shu Sigala LCSW, spoke to Marvin (the patient' s brother) who was in favor of locking up her medications at home and administering her medications at home. The patient's brother also verbalized that he would clam picker her prescriptions from the pharmacy, so that the patient does not have sole access to medications post-discharge. The patient's brother Marvin was in favor of discharge plan and patient discharging home tomorrow via [employer]. P: 1. Monitor the patient on unit for safety, suicidal ideation, and mood. 2. Patient will discharge tomorrow to home into the care of brother and father via [employer]. 3. Continue current medications as ordered.
[2017-01-17 12:24] VITALS: BP 109/68
--- NOTE | 2017-01-17 13:41 | SOCIAL WORKER PROG NOTE PSYCH ---
Social Work Progress Note Progress Note Patient was tentatively planning to discharge the hospital today but due to transportation issues ([employer] not open due to weather) patient will remain in the hospital this evening with planned discharge for tomorrow. Patient plans to retun to her fathers house with her brother, Marvin. Patient will continue to follow up from home with [facility] and [facility] for residential rehab. Patient denies SI/HI/AH/VH at present. Patients social services analyst, Elizabeth, has been notified of patients tentative discharge plan. She reports some concern that patient is not able to go directly to another program but understands the current circumstances. I am waiting for call back from patients brother, Marvin, to confirm that he will be responsible to hold and distribute patients medication due to concern that patient has hx of overdosing on medication. If he is unable to then VNS will be arranged for patient.
[2017-01-17 15:45] VITALS: BP 140/88
[2017-01-17 19:26] VITALS: BP 133/77
[2017-01-18 08:22] VITALS: BP 110/65
--- NOTE | 2017-01-18 09:09 | SOCIAL WORKER PROG NOTE PSYCH ---
Social Work Progress Note Progress Note Patient to discharge the hospital today. Patient denies SI/HI/AH/VH at present. Patient has [employer] transportation picking her up from the hospital at 11AM today. Patient will return home with her brother, Marvin, and their father. Patient reports this is a safe and secure environment and Marvin agreed to secure and distribute patients meds to her going forward. He reported their is a lock box in the house he can use to conceal patients medications. Patient is in agreement with this plan. Patient plans to atend IOP at [facility] in [place], [place]. Patient attended an evaluation at [facility] a few weeks ago but plans to attend again since never started IOP after that intake. [facility] has walk in evaluations every Sunday. Patient plans to attend next Sunday at 8AM. Patient is able to contract for safety at this time.
--- NOTE | 2017-01-18 10:17 | DISCHARGE SUMMARY REPORT-PSYCH ---
See Addendum Visit Information Visit Dates/Diagnosis' Admission Date: 01/09/17 Discharge Date: 01/18/17 Reason for Admission: Suicide attempt by overdose and auditory hallucinations; Alcohol detox. Psy Discharge Primary Diag: MDD, recurrent, severe with psychotic features Psy Discharge Secondary Diag: Unspecified anxiety disorder; R/O Schizoaffective disorder; Alcohol use disorder, severe; Asthma; Spinal Stenosis; L4-L5 and S1-S2 slipped discs. Hospital Course Significant Lab Findings: Lab Cholesterol 286 MG/DL H 01/09/17 1453 Cholesterol/HDL Ratio 5 % H 01/09/17 1453 LDL Cholesterol, Calc 213 mg/dL H 01/09/17 1453 Triglycerides 99 mg/dL 01/09/17 1453 Urine Test NEGATIVE 01/09/17 1503 01/11/17 Chest XR: FINDINGS: There is a small patchy region of airspace opacity in the right perihilar lung in the right upper lobe. Left lung clear. Cardiac and mediastinal contours are normal. Heart size is normal. No pulmonary vascular congestion. No pleural effusion or pneumothorax. IMPRESSION: Small patchy airspace disease in right upper lobe. 01/14/17 EKG: Sinus rhythm with rate of 92. Borderline T wave abnormalities. FL: 156; QRSD:80; QT: 360; QTc: 446; P: 50; QRS: 47; T:20. Borderline EKG confirmed by practice representative Dr. Obey Kendall. Course Complications: None. Consultations: The patient was seen for admission history and physical by data management manager Dr. Paul Sim. Please see his note for additional details. The patient was consulted by Dr. Bari Javier on 01/11/17, after the patient banged her ribcage on a bedside table and reported pain. The patient's vital signs were stable, there was no reported dyspnea or hypoxia. Patient was afebrile, with no cough or phlegm. A chest XR was obtained which was suggestive of a small patchy airspace disease of right upper lobe. Patient was deemed medically cleared by Dr. Bair Javier, with no further medical work-up required. The patient was additionally consulted by data management manager Dr. Claudio Jackson on 01/14/17 for complaints of chest tightness and shortness of breath. A repeat EKG was obtained which showed normal sinus rhythm with normal intervals and axis. There was diffuse nonspecific T-wave flattening. A troponin was also obtained which was less than 0.01. Per Dr. Claudio Jackson, no further medical workup was required Allergies: Coded Allergies: NSAIDS (Non-Steroidal Anti-Inflamma (Intermediate, HIVES, RASH, STOMACH PAIN 05/21) Hospital Course/TX Response: The patient was monitored on the unit for safety, suicidal ideation, mood, auditory hallucinations, and alcohol withdrawal. She was monitored on CIWA protocol and successfully completed an Ativan taper for alcohol withdrawal without complications. She participated in multimodal treatments on the unit. Prozac 20mg daily was discontinued given auditory hallucinations and concern that SSRI was activating. Seroquel 300mg was restarted at bedtime for insomnia, auditory hallucinations, and mood stabilization; Seroquel 100mg was also restarted three times daily for hallucinations and mood stabilization. Remeron 7.5mg at bedtine was started for insomnia which was increased to 15mg at bedtime with good effect. The patient's Lyrica was restarted at 100mg BID for neuropathic pain and increased to 100mg TID (since she had been off of medication for approximately 1 week). The patient was instructed to continue Lyrica 100mg TID until 01/20/17, and take last 100mg dose at bedtime on 01/20/17. She was instructed that she can then resume her outpatient prescribed dose at 150mg TID on the morning of 01/21/17. The patient tolerated all medications well and denied untoward medication effects. During the hospital course, the patient's mood and affect improved. Suicidal ideation, insomnia, and auditory hallucinations remitted. She successfully detoxed from alcohol without complications. A family phone conference was held with the patient, her brother (Marvin), her outpatient social media analyst (Elizabeth), Shu Sigala LCSW, and this typewriter repairer. The patient's treatment progress, substance abuse, psychiatric symptoms, medication regimen and discharge planning were reviewed and discussed. The patient expressed wanting to go to inpatient residential substance abuse rehab. The patient completed phone screenings at [facility] and [facility] during her hospital stay, however no beds materialized while she was on unit. The patient's social media analyst and brother were in favor of the patient being discharged home to live with her brother and father, until an inpatient residential rehab bed was available. Patient and her brother were also in favor of the patient following up at [facility] dual diagnosis [facility] for outpatient management of psychiatric symptoms and substance abuse. The patient refused visiting nurse services for medication administration. The patient was agreeable to having her brother assume responsibility of administering and managing her medications at home. The patient's brother was in favor of this plan and confirmed that he would keep all medications locked in a lock-box at home, and administer her medications daily to her. The patient was also in favor of this discharge plan. On the date of discharge, 01/18/17, She presented alert and oriented to person, place, time and situation. Eye contact was appropriate. She easily engaged in conversation. She reported her mood was "good." Affect was calm and constricted. She reported consistently improved sleep. She reported her appetite was stable. She had no complaints. She denied feeling hopeless, helpless, worthless and guilty. She reported depression of 2/10 (10 being the worst) and anxiety of 3/10 (10 being the worst) . She appeared much less somatic than on previous encounters. She denied acute pain. She reported current pain regimen was helping with chronic pain issues. She denied active and passive suicidal ideation, plans and intent. She denied homicidal ideation. She identified protective factors of "my brother," "Elizabeth (social media analyst)," and "my dad." She stated and also believed she will not harm herself or others. She denied urges and craving to use alcohol. She was open to attending AA meetings and obtaining a sponsor for support in sobriety. Patient was agreeable to continue calling [facility] and [facility] residential rehabs daily for updates on rehab bed availability following discharge and was agreeable and motivated to follow-up with dual diagnosis IOP at [facility] in [place]. She denied auditory and visual hallucinations. She last reported endorsing non- command auditory hallucinations 3 days ago. Thought process was linear and organized. She denied racing thoughts. Thought content was appropriate. Cognition was grossly intact. She reported tolerating all medications well and denied untoward medication effects. There was no evidence of movement disorder, or cogwheeling. AIMS=0. Patient reported feeling safe and ready for discharge. Reviewed plan with patient that her brother, Marvin, would assume responsibility of administering her daily medications and keep them in a lock-box at home post- discharge (confirmed with Marvin). Patient verbalized understanding of plan and was agreeable to plan. Discharge HBIPS - Tobacco Use Treatment Offered [facility] Medications Offered: Script Given-See Med List [facility] DC Tobacco Treatment Plan: [facility] Appt Date: 01/24/17 Program Appt Time: 1600 - EtOH/Drug Use D/O Treatment Offered [facility] DC Medications Offered: Ref Med EtOH/Drug Use D/O [facility] DC EtOH/SubAbuse [place] Plan: Other SubAbuse/Dual [facility] Program Appt Date: 01/24/17 Program Appt Time: 0800 Metabolic Screening - Screen if on a Neuroleptic Medication - Metabolic screening should include: - Blood Pressure, BMI, Glucose or Hgb A1c, & a - Lipid profile from within the past 365 days. Metabolic Screening () Not Applicable, patient not on a neuroleptic. OR ([X]) Patient on a neuroleptic(s) . Enter below results for Glucose or Hemoglobin A1C, and lipid panel if obtained during the last 365 days. BMI: 32.200 Blood Pressure: 110/65 Laboratory Results (If applicable): Lab Cholesterol 286 MG/DL H 01/09/17 1453 Cholesterol/HDL Ratio 5 % H 01/09/17 1453 Glucose 89 mg/dL 01/09/17 1453 HDL Cholesterol 54 mg/dL 01/09/17 1453 LDL Cholesterol, Calc 213 mg/dL H 01/09/17 1453 Triglycerides 99 mg/dL 01/09/17 1453 Discharge Instructions General Discharge Information Discharge Medications: Discharge Medications- (Dose, route, freq, indication): START taking these NEW Home Medications: Nicotine (Nicotine Dose: On the skin, DAILY @8 AM Qty: 14 Called in to Patch) 14 MG/24 HOUR 14 Milligram for tobacco cessation Refills: 0 Pharm 1 PATCH.TD24 Apply 1 patch topically QAM and remove before bedtime. Last Taken: 01/18/17 Time: 0800 Pregabalin (Lyrica) Dose: ORAL, 3 TIMES DAILY Qty: 7 Called in to 100 MG CAPSULE 100 Milligram BEFORE MEALS for Refills: 0 Pharm 1 neuropathic pain Take 1 cap by mouth TID x 3 days (last dose on 01/20/17 at bedtime) . Increase to 150mg po TID on Sunday morning 01/21/17. Patient confirmed having adequate supply of Lyrica 150mg caps at home. This was verified on [place] MEDIA TRAFFIC MANAGER. Last Taken (100MG): 01/18/17 Time: 0800 PLEASE FOLLOW CARRIE PARKS APRN'S INSTRUCTIONS RE: THIS MEDICATION FOR FUTURE USE. Mirtazapine Dose: ORAL, AT BEDTIME for Qty: 14 Called in to (Remeron) 15 MG 15 Milligram depression/insomnia Refills: 0 Pharm 1 TABLET Take 1 tablet by mouth at bedtime. Last Taken: 01/17/17 Time: 2200 Quetiapine Fumarate Dose: ORAL, Every night for Qty: 14 Called in to (Quetiapine 1 Tablet mood Refills: 0 Pharm 1 Fumarate) 300 MG stability/hallucinations TABLET Take 1 tablet by mouth at bedtime. Last Taken: 01/17/17 Time: 2200 Quetiapine Fumarate Dose: ORAL, 0800,1200,1600 for Qty: 42 Called in to (Quetiapine 100 Milligram mood Refills: 0 Pharm 1 Fumarate) 100 MG stability/hallucinations TABLET Take 1 tablet by mouth three times a day. Last Taken: 01/18/17 Time: 0800 Multivitamin (One Dose: ORAL, DAILY for VITAMIN Qty: 14 Called in to Daily Multivitamin) 1 Tablet SUPPORT Refills: 0 Pharm 1 1 EACH TABLET Please purchase over the counter. Take 1 tablet by mouth daily. Last Taken: 01/18/17 Time: 0800 CONTINUE taking these Home Medications: Pregabalin (Lyrica) 150 Dose: ORAL, THREE TIMES DAILY MG CAPSULE 1 Capsule for SPINAL CORD/NERVE PAIN Resume Lyrica 150mg po TID on Sunday morning, 01/21/17. Tizanidine HCl Dose: ORAL, As Directed for (Zanaflex) 2 MG CAPSULE 1 Capsule MUSCLE SPASMS PER PT 1 CAP PO TID 2 QHS NOT ON THIS MEDICATION WHILE ON CPS HOWEVER WAS ON FLEXERIL 10MG AND LAST DOSE WAS 01/18/17 @ 0800 STOP taking these DISCONTINUED Home Medications: Fluoxetine HCl (Fluoxetine Dose: ORAL, DAILY for MENTAL HEALTH HCl) 20 MG CAPSULE 2 Capsule Reason Stopped: Per Doctor Decision 1: [facility] [place] [address], [address] [facility], [place] [id number] Your Preferred [facility] [place], [place] [id number] Multiple Neuroleptics: ([X) Not Applicable OR Document below three failed attempts at monotherapy, or a plan to taper to monotherapy, or augmentation of Clozapine. () Patient's Diet: Regular. Patient's Activity: No restrictions. DC Disposition: Patient to return to home with brother and father. Recommendations: The patient was advised to please take medications as prescribed. She was advised to comply with plan for her brother to administer all medications. She was advised to abstain from all substances, attend daily AA meetings and obtain a sponsor for support in sobriety. She was advised to call [facility] and [facility] daily to inquire about bed availability. She was advised to follow-up with [facility] dual diagnosis IOP for continued management of psychiatric symptoms and medications. She was advised that in the event of an emergency to call 911/ go to nearest emergency department. The patient verbalized understanding of all instructions. Referred To: [facility] [address], [place] *Walk-in for IOP intake on 01/24/17 at 8AM. [facility] [address] [place] [address] (t)[phone] *Walk in to group on 01/24/17 at 4PM. Copies To: Smoking [facility]essation Program; [facility]
--- NOTE | 2017-01-18 10:18 | CP SOUTH PROGRESS NOTE PSYCH ---
Psych (Inpt) Progress Note Progress Note Include the following elements, when applicable: Involvement in the active treatment of the patient with behavioral observations of the patient and the patient's response to the treatment. Review of the ongoing treatment process in the context of the treatment plan. Indication of how multi-disciplinary staff members are carrying out the treatment plan. Plans for future interventions and recommendations for revision of the treatment plan. Liaison with other physicians/providers. Progress Note: [I discussed this patient's progress to date, current mental status, treatment process in the context of the treatment plan, and discharge planning with staff/ team in the daily morning inpatient team meeting. I also met with the patient myself in individual session.] S: "I feel good." O: Current Medications Sig/Minnie Start time Last Medication Dose Route Stop Time Status Admin Acetaminophen 650 MG Q6P PRN 01/09 1645 AC 01/17 PO 0813 Al Hydroxide/Mg 30 ML .STK-MED ONE 01/17 1702 DC Hydroxide PO 01/17 1703 Al Hydroxide/Mg 30 ML Q4-6 PRN PRN 01/09 1645 AC 01/17 Hydroxide PO 1707 Albuterol Sulfate 2 PUF Q4P PRN 01/14 1215 AC 01/14 INH 1659 Cyclobenzaprine HCl 10 MG Q8P PRN 01/11 1145 AC 01/18 PO 0822 Gabapentin 300 MG Q8P PRN 01/15 1100 AC 01/17 PO 1450 Magnesium Hydroxide 30 ML AT BEDTIME PRN 01/09 1645 AC PO Mirtazapine 15 MG AT BEDTIME 01/16 2200 AC 01/17 PO 2145 Multivitamins 1 TAB DAILY 01/09 1632 AC 01/18 PO 0822 Nicotine 14 MG 0800 01/10 1215 AC 01/18 TOP 0822 Pregabalin 100 MG TIDAC 01/13 1700 AC 01/18 PO 0823 Quetiapine Fumarate 100 MG 0800,1200,1600 01/16 0800 AC 01/18 PO 0822 Quetiapine Fumarate 25 MG Q8P PRN 01/12 1445 AC 01/17 PO 1829 Quetiapine Fumarate 300 MG 2200 01/10 2200 AC 01/17 PO 2145 Vital Signs Date Time Temp Pulse Resp B/P Pulse O2 O2 Flow FiO2 Ox Delivery Rate 01/18 822 96.9 85 110/65 01/17 1926 97.5 90 133/77 01/17 1545 92 140/88 01/17 1224 94 109/68 A: Chart, progress notes, labs, VS and medication list were reviewed. Vital signs remain stable. There were no new labs today. Reviewed patient's progress to date with nursing staff who reported the patient' s mood remains stable and she has been attending milieu groups. She denied thoughts to harm herself and others, and denied auditory and visual hallucinations. Met with patient today on the date of discharge. She presented alert and oriented to person, place, time and situation. Eye contact was appropriate. She easily engaged in conversation. She reported her mood was "good." Affect was calm and constricted. She reported consistently improved sleep. She reported her appetite was stable. She had no complaints. She denied feeling hopeless, helpless, worthless and guilty. She reported depression of 2/10 (10 being the worst) and anxiety of 3/10 (10 being the worst) . She appeared much less somatic than on previous encounters. She denied acute pain. She reported current pain regimen was helping with chronic pain issues. She denied active and passive suicidal ideation, plans and intent. She denied homicidal ideation. She identified protective factors of "my brother," "Elizabeth (social media marketer)," and "my dad." She stated and also believed she will not harm herself or others. She denied urges and craving to use alcohol. She was open to attending AA meetings and obtaining a sponsor for support in sobriety. Patient was agreeable to continue calling [facility] and [facility] residential rehabs daily for updates on rehab bed availability following discharge and was agreeable and motivated to follow-up with dual diagnosis IOP at [facility] in [place]. She denied auditory and visual hallucinations. She last reported endorsing non- command auditory hallucinations 3 days ago. Thought process was linear and organized. She denied racing thoughts. Thought content was appropriate. Cognition was grossly intact. She reported tolerating all medications well and denied untoward medication effects. There was no evidence of movement disorder, or cogwheeling. AIMS=0. Patient reported feeling safe and ready for discharge. Reviewed plan with patient that her brother, Marvin, would assume responsibility of administering her daily medications and keep them in a lock-box at home post- discharge (confirmed with Marvin yesterday via phone). Patient verbalized understanding of plan and was agreeable to plan. P: 1. Discharge today to home into the care of brother and father via [employer]. 2. All discharge prescriptions were called into [facility] in [place], [place] (#[phone]). Patient verbalized understanding of this. 3. F/u at [facility] in 01/24/17 between 7:30AM-8:30AM for IOP intake. 4. Continue calling [facility] and [facility] residental programs daily for updates on bed availability. 5. Information provided on Smoking Cessation Program for assistance with smoking cessation. Patient verbalized understanding that next group time is on at 4PM. 6. Patient was strongly encouraged to abstain from all substances, attend daily AA meetings and obtain a sponsor for support in sobriety. 7. In the event of an emergency, call 911/go to nearest emergency department. Patient verbalized understanding of instructions
[2017-01-18] MEDS ORDERED: NICOTINE PATCH1 EAC2 TOP (10:37)
[2017-01-18] MEDS ORDERED: LYRICA100 M1 PO (10:39)
[2017-01-18] MEDS ORDERED: REMERON15 M2 PO (10:39)
[2017-01-18] MEDS ORDERED: ONE DAILY MULT1 EAC2 PO (10:40)
[2017-01-18] MEDS ORDERED: QUETIAPINE FUM300 M1 PO (10:40)
[2017-01-18] MEDS ORDERED: QUETIAPINE FUM100 M1 PO (10:40)
== END 2017-01-18 11:14 | DRG 751 ==
LOC: ERH 13:52 → ERHI 16:51 → CP SOUTH 16:51
PROVIDERS: Emergency Medicine; ADMIT Psychiatry & Neurology Psychiatry
DX: F33.3 Major depressive disorder, recurrent, severe with psychotic symptoms (principal); F41.9 Anxiety disorder, unspecified; F10.20 Alcohol dependence, uncomplicated; J45.909 Unspecified asthma, uncomplicated; M48.07 Spinal stenosis, lumbosacral region
CPT/HCPCS: 36415; 80307; 81025; 93005; 93010; G0480; J3490